=== PATIENT | female | born 1960 | race Caucasian/White ===

== ENCOUNTER 2016-04-20 19:19 | Emergency (ER) | payer OTHER ==
[~2016-04-20] VITALS: Ht 154.9 cm; Wt 81.6 kg
[~2016-04-20 19:19] MED LIST: ACYC400T PO; ALPR0.25 PO; ALPR1TAB2 PO; AMOX500C PO; ASPI-252 PO; AZIT250T6 PO; CIPR7.5D AD; DIVA500T2 PO; DIVA500T9 PO; HYDR-971 PO; OMEP20CA9 PO; TRAM-29 PO; XANAX
--- NOTE | 2016-04-20 20:23 | PHYS DOC ---
Past Medical History Past Medical History: Diverticulosis, P.U.D., Seizure, Other Additional Past Medical Histor: PANIC ATTACKS Past Surgical History: No Surgical History Alcohol Use: None Drug Use: Benzodiazepine, Methamphetamine Adult General Chief Complaint Chief Complaint: BACK PAIN OR INJURY HPI HPI Patient is a 56 year old female who presents with multiple complaints, however the patient's primary complaint is left-sided back pain. The patient has history of chronic back pain. Patient states her symptoms have been getting worse over the past couple days. Patient also states that her urine has been "yellow" which she is concerned about. Patient denies any dysuria or fever. Patient rates her pain currently as 9 out of 10 in her back. Patient states that the pain goes towards her left hip. Patient admits that she has history of chronic low back and left hip pain and has been on medications for treatment. The patient follows a Dr. Moser of neurology and Dr. Casas for primary care. Patient states that she took hydrocodone which has not helped with her pain. Patient denies any loss of bowel or bladder control, foot drop, or saddle anesthesia. Review of Systems Review of Systems Constitutional: Denies fever or chills [] Eyes: Denies change in visual acuity, redness, or eye pain [] HENT: Denies nasal congestion or sore throat [] Respiratory: Denies cough or shortness of breath [] Cardiovascular: Denies chest pain or edema [] GI: Denies abdominal pain, nausea, vomiting, bloody stools or diarrhea [] : Denies dysuria or hematuria [] Musculoskeletal: Back pain, left hip pain [] Integument: Skin rash [] Neurologic: Denies headache, focal weakness or sensory changes [] Current Medications Current Medications Current Medications Medications (Trade) Dose Ordered Sig/[facility] Start Time Stop Time Status Last Admin Dose Admin Orphenadrine Citrate (Norflex) 60 mg 1X ONCE 04/20/16 20:30 04/20/16 20:31 DC 04/20/16 21:05 60 MG Allergies Allergies Allergies Coded Allergies Type Severity Reaction Last Updated Verified codeine Allergy Severe "swells up" 12/17/15 Yes Physical Exam Physical Exam Constitutional: Alert, afebrile, anxious, no acute distress. [] HENT: Normocephalic, atraumatic, bilateral external ears normal, oropharynx moist, no oral exudates, nose normal. [] Eyes: PERRLA, EOMI, conjunctiva normal, no discharge. [] Neck: Normal range of motion, no tenderness, supple, no stridor. [] Cardiovascular:Heart rate regular rhythm, no murmur [] Lungs & Thorax: Bilateral breath sounds clear to auscultation [] Abdomen: Bowel sounds normal, soft, no tenderness, no masses, no pulsatile masses. [] Skin: Warm, dry, no erythema, eczematous rash on forehead and bilateral dorsum of hands. [] Back: Left lower lumbar paraspinous muscle tenderness to palpation, no midline tenderness, no flank ecchymosis. [] Extremities: No tenderness, no cyanosis, no clubbing, ROM intact, no edema. [] Neurologic: Alert and oriented X 3, normal motor function, normal sensory function, no focal deficits noted. [] Current Patient Data Vital Signs Vital Signs Date Time Temp Pulse Resp B/P Pulse Ox O2 Delivery O2 Flow Rate FiO2 04/20/16 22:15 64 19 173/106 94 Room Air 04/20/16 19:20 97.4 97.4 Lab Values Laboratory Tests Test 04/20/16 20:00 Urine Collection Type Unknown Urine Color Yellow Urine Clarity Clear Urine pH 6.0 Urine Specific [place] <=1.005 Urine Protein Negativemg/dL (NEG-TRACE) Urine Glucose (UA) Negativemg/dL (NEG) Urine Ketones (Stick) Negativemg/dL (NEG) Urine Blood Negative (NEG) Urine Nitrite Negative (NEG) Urine Bilirubin Negative (NEG) Urine Urobilinogen Dipstick 0.2mg/dL (0.2 mg/dL) Urine Leukocyte Esterase Trace (NEG) Urine RBC 1-2/HPF (0-2) Urine WBC 0/HPF (0-4) Urine Squamous Epithelial Cells Mod/LPF Urine Bacteria Few/HPF (0-FEW) EKG EKG Not performed [] Radiology/Procedures Radiology/Procedures Not performed [] Course & Med Decision Making Course & Med Decision Making Pertinent Labs and Imaging studies reviewed. (See chart for details) Patient was treated with Norflex in the emergency department with improvement in her back pain and left lower extremity symptoms. The patient's urine sample did not show any evidence of urinary tract infection. The patient was recommended to use Benadryl as needed for her rash and to increase her fluid intake. In talking with the patient, she appears to have an element of anxiety associated with her complaints. The patient has alprazolam which she uses for anxiety. I recommended that she use her medication as prescribed and recommended follow-up with her primary doctor in the next 3 days. Advised return emergency department for any worsening symptoms. Patient voiced understanding and in agreement with treatment plan. Dragon Disclaimer Dragon Disclaimer This electronic medical record was generated, in whole or in part, using a voice recognition dictation system. Departure Departure Impression: Primary Impression: Sciatica Disposition: 01 HOME, SELF-CARE Condition: IMPROVED Referrals: ROMAIN ARZOLA MD (PCP) Patient Instructions: Sciatica Additional Instructions: Follow-up with your primary doctor in 3-5 days. Return to the emergency department for any worsening symptoms. Problem Qualifiers Primary Impression: Sciatica Laterality: left Qualified Code: M54.32 - Sciatica, left side VENKAT HOUSER MD Apr 20, 2016 20:23
[2016-04-20] MEDS ORDERED: ORPHENADRINE CITRATE 60 MG/2 ML VIAL. IM ONE (20:30)
[2016-04-20 21:15] LABS: BILIRUBIN,URINE NEGATIVE (NEG); GLUCOSE,URINE NEGATIVE (NEG); NITRITE,URINE NEGATIVE (NEG); PROTEIN,URINE NEGATIVE (NEG-TRACE); UROBILINOGEN,URINE 0.2 mg/dL (0.2 mg/dL)
[2016-04-20 21:30] LABS: BACTERIA,URINE FEW /HPF (0-FEW); WBC,URINE 0 /HPF (0-4)
[2016-04-20 21:31] LABS: SQUAMOUS EPITHELIAL CELL,UR MOD /LPF
[2016-04-20 22:15] VITALS: BP 173/106
== END 2016-04-20 22:55 | disposition home or self-care (01) ==
LOC: ER 19:19
DX: M54.42 Lumbago with sciatica, left side (principal); G89.29 Other chronic pain; F41.0 Panic disorder [episodic paroxysmal anxiety]; F15.10 Other stimulant abuse, uncomplicated; F13.10 Sedative, hypnotic or anxiolytic abuse, uncomplicated; Z88.5 Allergy status to narcotic agent; Z79.899 Other long term (current) drug therapy
CPT/HCPCS: 81001; 87086; 96372; 99284; J2360

== ENCOUNTER 2016-05-11 11:13 | Emergency (ER) | payer OTHER ==
[~2016-05-11] VITALS: Ht 167.6 cm; Wt 83.0 kg
[2016-05-11] MEDS ORDERED: IV NORMAL SALINE 1000ML BAG 1,000 ML IV SCH (12:19)
--- NOTE | 2016-05-11 12:19 | PHYS DOC ---
Past Medical History Past Medical History: Anxiety, COPD, Diverticulosis, P.U.D., Seizure, Other Additional Past Medical Histor: PANIC ATTACKS Past Surgical History: Tubal ligation Additional Information: 0.5 PPD Alcohol Use: None Drug Use: Benzodiazepine, Methamphetamine Adult General Chief Complaint Chief Complaint: NAUSEA/VOMITING/DIARRHA HPI HPI Patient is a 56 year old female who presents with one week of nausea, productive cough, wheezing. Patient says she has been "spitting up" occasionally due to the nausea. She also reports intermittently feeling hungry and the not hungry. She denies any pain. She felt a little shortness of breath last night, but not now. No fever. She has not taken anything at home for symptoms. No other acute complaints. Review of Systems Review of Systems Constitutional: Denies fever or chills Eyes: Denies change in visual acuity or eye pain HENT: Denies nasal congestion or sore throat Respiratory: Cough. Shortness of breath last night (resolved) Cardiovascular: Denies chest pain GI: Nausea, vomiting. Denies abdominal pain,bloody stools or diarrhea : Denies dysuria or hematuria Musculoskeletal: Denies back pain or joint pain Integument: Denies rash or skin lesions Neurologic: Denies headache, focal weakness or sensory changes Current Medications Current Medications Current Medications Medications (Trade) Dose Ordered Sig/[facility] Start Time Stop Time Status Last Admin Dose Admin Albuterol/ Ipratropium (Duoneb) 3 ml 1X ONCE 05/11/16 12:30 05/11/16 12:31 DC 05/11/16 13:19 3 ML Famotidine (Pepcid) 20 mg 1X ONCE 05/11/16 12:30 05/11/16 12:31 DC 05/11/16 13:02 20 MG Ondansetron HCl (Zofran) 4 mg 1X ONCE 05/11/16 12:30 05/11/16 12:31 DC 05/11/16 13:02 4 MG Prednisone (Prednisone) 60 mg 1X ONCE 05/11/16 12:30 05/11/16 12:31 DC 05/11/16 13:02 60 MG Sodium Polystyrene Sulfonate (Kayexalate) 15 gm 1X ONCE 05/11/16 14:45 05/11/16 14:46 DC 05/11/16 14:53 15 GM Sodium Chloride (Iv Sodium Chloride 0.9% 1000ml Bag) 1,000 ml @ 1,000 mls/hr Q1H 05/11/16 12:19 05/11/16 13:18 DC 05/11/16 13:01 1,000 MLS/HR Allergies Allergies Allergies Coded Allergies Type Severity Reaction Last Updated Verified codeine Allergy Severe "swells up" 12/17/15 Yes Physical Exam Physical Exam Constitutional: Well developed, well nourished, no acute distress, non-toxic appearance HENT: Normocephalic, atraumatic, bilateral external ears normal Eyes: EOMI, conjunctiva normal, no discharge Neck: Normal range of motion, no stridor Cardiovascular: Heart rate normal, regular rhythm, no murmur Lungs & Thorax: Diffuse expiratory wheezing, coarse breath sounds, occasional cough Abdomen: Bowel sounds normal, soft, non-distended, no TTP Skin: Warm, dry, no erythema, no rash Extremities: No obvious deformity, no edema Neurologic: Alert and oriented X 3, no gross deficits noted Psychologic: Affect normal, judgement normal, mood normal Current Patient Data Vital Signs Vital Signs Date Time Temp Pulse Resp B/P Pulse Ox O2 Delivery O2 Flow Rate FiO2 05/11/16 15:00 65 20 121/81 94 05/11/16 13:48 Room Air 05/11/16 11:24 98.1 98.1 Lab Values Laboratory Tests Test 05/11/16 11:00 05/11/16 12:53 Urine Collection Type Unknown Urine Color Yellow Urine Clarity Clear Urine pH 5.5 Urine Specific [place] 1.020 Urine Protein Negativemg/dL (NEG-TRACE) Urine Glucose (UA) Negativemg/dL (NEG) Urine Ketones (Stick) Negativemg/dL (NEG) Urine Blood Negative (NEG) Urine Nitrite Negative (NEG) Urine Bilirubin Negative (NEG) Urine Urobilinogen Dipstick 0.2mg/dL (0.2 mg/dL) Urine Leukocyte Esterase Negative (NEG) Urine RBC Rare/HPF (0-2) Urine WBC 1-4/HPF (0-4) Urine Squamous Epithelial Cells Mod/LPF Urine Bacteria Few/HPF (0-FEW) Urine Mucus Marked/LPF White Blood Count 9.4x10^3/uL (4.0-11.0) Red Blood Count 4.73x10^6/uL (3.50-5.40) Hemoglobin 14.0g/dL (12.0-15.5) Hematocrit 42.0% (36.0-47.0) Mean Corpuscular Volume 89fL (79-100) Mean Corpuscular Hemoglobin 30pg (25-35) Mean Corpuscular Hemoglobin Concent 33g/dL (31-37) Red Cell Distribution Width 14.6% (11.5-14.5) H Platelet Count 210x10^3/uL (140-400) Neutrophils (%) (Auto) 61% (31-73) Lymphocytes (%) (Auto) 31% (24-48) Monocytes (%) (Auto) 6% (0-9) Eosinophils (%) (Auto) 2% (0-3) Basophils (%) (Auto) 0% (0-3) Neutrophils # (Auto) 5.8x10^3uL (1.8-7.7) Lymphocytes # (Auto) 2.9x10^3/uL (1.0-4.8) Monocytes # (Auto) 0.6x10^3/uL (0.0-1.1) Eosinophils # (Auto) 0.2x10^3/uL (0.0-0.7) Basophils # (Auto) 0.0x10^3/uL (0.0-0.2) Sodium Level 144mmol/L (136-145) Potassium Level 5.2mmol/L (3.5-5.1) H Chloride Level 108mmol/L (98-107) H Carbon Dioxide Level 31mmol/L (21-32) Anion Gap 5 (6-14) L Blood Urea Nitrogen 15mg/dL (7-20) Creatinine 0.8mg/dL (0.6-1.0) Estimated GFR (Cockcroft-Gault) 74.2 BUN/Creatinine Ratio 19 (6-20) Glucose Level 100mg/dL (70-99) H Calcium Level 9.7mg/dL (8.5-10.1) Total Bilirubin 0.2mg/dL (0.2-1.0) Aspartate Amino Transferase (AST) 10U/L (15-37) L Alanine Aminotransferase (ALT) 14U/L (14-59) Alkaline Phosphatase 79U/L (46-116) Total Protein 7.5g/dL (6.4-8.2) Albumin 3.5g/dL (3.4-5.0) Albumin/Globulin Ratio 0.9 (1.0-1.7) L Lipase 142U/L (73-393) Laboratory Tests 05/11/16 12:53 Laboratory Tests 05/11/16 12:53 EKG EKG EKG (my read): sinus rhythm, rate 59, normal axis, no acute ischemic changes, no peaked T waves Radiology/Procedures Radiology/Procedures CXR: IMPRESSION: No acute cardiopulmonary abnormality is detected. Course & Med Decision Making Course & Med Decision Making Pertinent Labs and Imaging studies reviewed. (See chart for details) Patient is 56-year-old female who presents with nausea and vomiting, cough. Likely viral illness with exacerbation of COPD. Will obtain EKG and chest x-ray , as well as labs. Steroids and breathing treatment ordered as well as nausea medication. EKG and chest x-ray results as above. Labs notable for mild hyperkalemia. EKG without changes related to this. Discussed results with patient, who is feeling much better at this time. We will go ahead and send her home. I gave her a dose of Kayexalate before she left, given instructions for close follow-up with PCP for further evaluation of this. Discharged with prescription for steroid burst, MDI refill, strict return precautions. Dragon Disclaimer Dragon Disclaimer This electronic medical record was generated, in whole or in part, using a voice recognition dictation system. Departure Departure Impression: Primary Impression: COPD exacerbation Additional Impressions: Nausea & vomiting Hyperkalemia Disposition: HOME, SELF-CARE Condition: IMPROVED Referrals: RAMYA LINARES MD (PCP) Patient Instructions: Chronic Obstructive Pulmonary Disease Exacerbation, Nausea and Vomiting Additional Instructions: Thank you for allowing us to provide care today in the Emergency Department. Take the provided medication as directed. Your potassium level was slightly high. You will need to follow up to ensure this has improved. Schedule a follow up appointment with your primary care doctor. Return promptly to the Emergency Department if you develop any new or concerning symptoms, such as shortness of breath. Scripts Prednisone 50 Mg Tablet1 Tab PO DAILY #4 TAB start taking 05/12/16 Prov:TOMAS AVITIA MD 05/11/16 Albuterol Sulfate (Proventil Hfa Inhaler)6.7 Gm Hfa.[id number].ad1 Puff IH PRN Q4HRS PRN WHEEZING #1 INHALER Ref 0 Prov:TOMAS AVITIA MD 05/11/16 Ondansetron (Zofran Odt)4 Mg Tab.rapdis1 Tab SL Q8HRS PRN NAUSEA #15 TAB Prov:TOMAS AVITIA MD 05/11/16 Problem Qualifiers TOMAS AVITIA MD May 11, 2016 12:19
[2016-05-11] MEDS ORDERED: IPRATRPIUM/ALBUTEROL 0.5/2.5MG 3 ML NEBU. NEB ONE (12:30)
[2016-05-11] MEDS ORDERED: PREDNISONE 20 MG TABLET PO ONE (12:30)
[2016-05-11] MEDS ORDERED: ONDANSETRON PF 4 MG/2 ML VIAL. IV ONE (12:30)
[2016-05-11] MEDS ORDERED: FAMOTIDINE 20 MG/2 ML VIAL IVP ONE (12:30)
--- NOTE | 2016-05-11 13:02 | RAD ---
Chest, 2 views, 05/11/2016: History: Productive cough Comparison is made to a study from 01/24/2016. The heart size and pulmonary vascularity are normal. No pulmonary infiltrates are seen. There is no evidence of pleural fluid. Degenerative changes are present at the left shoulder with a probable periarticular loose body. Moderate spurring is present in the spine. IMPRESSION: No acute cardiopulmonary abnormality is detected.
[2016-05-11 13:04] LABS: BASO % 0 % (0-3); EOS % 2 % (0-3); LYMPH # 2.9 x10^3/uL (1.0-4.8); LYMPH % 31 % (24-48); MEAN CORPUSCULAR HEMOGLOBIN 30 pg (25-35); MEAN CORPUSCULAR HGB CONC 33 g/dL (31-37); MEAN CORPUSCULAR VOLUME 89 fL (79-100); MONO % 6 % (0-9); NEUT % 61 % (31-73); PLATELET COUNT 210 x10^3/uL (140-400); RED BLOOD COUNT 4.73 x10^6/uL (3.50-5.40); RED CELL DISTRIBUTION WIDTH 14.6 % (11.5-14.5); WHITE BLOOD COUNT 9.4 x10^3/uL (4.0-11.0)
[2016-05-11 13:10] LABS: BILIRUBIN,URINE NEGATIVE (NEG); GLUCOSE,URINE NEGATIVE (NEG); NITRITE,URINE NEGATIVE (NEG); PH,URINE 5.5; PROTEIN,URINE NEGATIVE (NEG-TRACE); UROBILINOGEN,URINE 0.2 mg/dL (0.2 mg/dL)
[2016-05-11 13:17] LABS: CALCIUM 9.7 mg/dL (8.5-10.1); CREATININE 0.8 mg/dL (0.6-1.0); GFR 74.2; POTASSIUM 5.2 mmol/L (3.5-5.1)
[2016-05-11 13:22] LABS: BACTERIA,URINE FEW /HPF (0-FEW); RBC,URINE RARE /HPF (0-2); SQUAMOUS EPITHELIAL CELL,UR MOD /LPF
[2016-05-11 13:23] LABS: ALBUMIN 3.5 g/dL (3.4-5.0); ALBUMIN/GLOBULIN RATIO 0.9 (1.0-1.7); TOTAL BILIRUBIN 0.2 mg/dL (0.2-1.0); TOTAL PROTEIN 7.5 g/dL (6.4-8.2)
[2016-05-11] MEDS ORDERED: ONDA4TAB10 SL (14:44)
[2016-05-11] MEDS ORDERED: PRED50TA PO (14:44)
[2016-05-11] MEDS ORDERED: PROVENTIL HFA6.7 GM IH (14:44)
[2016-05-11] MEDS ORDERED: SODIUM POLYSTYRENE SULFONATE 15 GM/60 ML ORAL.SUSP. PO ONE (14:45)
[2016-05-11 15:00] VITALS: BP 121/81
--- NOTE | 2016-05-11 15:23 | EKG ---
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
== END 2016-05-11 15:01 | disposition home or self-care (01) ==
LOC: ER 11:13
DX: J44.1 Chronic obstructive pulmonary disease with (acute) exacerbation (principal); R11.2 Nausea with vomiting, unspecified; E87.5 Hyperkalemia; F41.9 Anxiety disorder, unspecified; F17.200 Nicotine dependence, unspecified, uncomplicated; F19.10 Other psychoactive substance abuse, uncomplicated; F15.10 Other stimulant abuse, uncomplicated; Z98.51 Tubal ligation status; Z87.11 Personal history of peptic ulcer disease; Z88.5 Allergy status to narcotic agent
CPT/HCPCS: 36415; 71020; 80053; 81001; 83690; 85027; 93005; 94640; 96361; 96374; 96375; 99285; J2405; J7030; J7512; J7620; S0028

== ENCOUNTER 2016-06-27 19:41 | Emergency (ER) | payer OTHER ==
[~2016-06-27] VITALS: Ht 165.1 cm; Wt 83.0 kg
[~2016-06-27 19:41] MED LIST changes: +ONDA4TAB10 SL; +PRED50TA PO; +PROVENTIL HFA6.7 GM IH
[2016-06-27 20:34] LABS: BASO % 0 % (0-3); EOS % 2 % (0-3); HEMATOCRIT 39.9 % (36.0-47.0); HEMOGLOBIN 13.1 g/dL (12.0-15.5); LYMPH # 2.5 x10^3/uL (1.0-4.8); LYMPH % 37 % (24-48); MEAN CORPUSCULAR HEMOGLOBIN 30 pg (25-35); MEAN CORPUSCULAR HGB CONC 33 g/dL (31-37); MEAN CORPUSCULAR VOLUME 91 fL (79-100); MONO % 7 % (0-9); NEUT % 55 % (31-73); PLATELET COUNT 171 x10^3/uL (140-400); RED BLOOD COUNT 4.37 x10^6/uL (3.50-5.40); RED CELL DISTRIBUTION WIDTH 14.9 % (11.5-14.5); WHITE BLOOD COUNT 6.8 x10^3/uL (4.0-11.0)
[2016-06-27 20:54] LABS: CALCIUM 8.5 mg/dL (8.5-10.1); CREATININE 0.9 mg/dL (0.6-1.0); GFR 64.8; POTASSIUM 3.7 mmol/L (3.5-5.1)
--- NOTE | 2016-06-27 21:17 | PHYS DOC ---
Past Medical History Past Medical History: Anxiety, COPD, Diverticulosis, P.U.D., Seizure, Other Additional Past Medical Histor: PANIC ATTACKS Past Surgical History: Tubal ligation Additional Information: PPD Alcohol Use: None Drug Use: Benzodiazepine, Methamphetamine Adult General Chief Complaint Chief Complaint: ABDOMINAL PAIN HPI HPI Patient is a 56 year old female who presents with intermittent left sided flank and abdominal fullness and spasm type pain for the past 3 days. No pain currently. Pain is worse with ROM. Has taken no medications to attempt to help with this symptom. She denies fever or chills, nausea or vomiting, diarrhea , constipation, dysuria, hematuria, rash, numbness, tingling, weakness, bowel or bladder dysfunction, saddle anesthesia. Review of Systems Review of Systems Constitutional: Denies fever or chills [] Eyes: Denies change in visual acuity, redness, or eye pain [] HENT: Denies nasal congestion or sore throat [] Respiratory: Denies cough or shortness of breath [] Cardiovascular: No additional information not addressed in HPI [] GI: Denies nausea, vomiting, bloody stools or diarrhea [] : Denies dysuria or hematuria [] Musculoskeletal: Denies joint pain [] Integument: Denies rash or skin lesions [] Neurologic: Denies headache, focal weakness or sensory changes [] Endocrine: Denies polyuria or polydipsia [] Allergies Allergies Allergies Coded Allergies Type Severity Reaction Last Updated Verified codeine Allergy Severe "swells up" 12/17/15 Yes Physical Exam Physical Exam Constitutional: Well developed, well nourished, no acute distress, non-toxic appearance. [] HENT: Normocephalic, atraumatic, bilateral external ears normal, oropharynx moist, nose normal. [] Eyes: PERRLA, EOMI. [] Neck: Normal range of motion, supple. [] Cardiovascular:Heart rate regular rhythm [] Lungs & Thorax: Bilateral breath sounds clear to auscultation [] Abdomen: Bowel sounds normal, soft, no tenderness, no pulsatile masses. [] Skin: Warm, dry, no erythema, no rash. [] Back: No midline spinal tenderness, no CVA tenderness. Has mild left lumbar paraspinal tenderness with no visual or palpable abnormality [] Extremities: No tenderness, ROM intact, no edema. [] Neurologic: Alert and oriented X 3, normal motor function, normal sensory function, no focal deficits noted. [] Psychologic: Affect normal, judgement normal, mood normal. [] Current Patient Data Vital Signs Vital Signs Date Time Temp Pulse Resp B/P Pulse Ox O2 Delivery O2 Flow Rate FiO2 06/27/16 19:42 98.1 74 20 145/78 92 Room Air 98.1 Lab Values Laboratory Tests Test 06/27/16 20:00 06/27/16 21:02 White Blood Count 6.8x10^3/uL (4.0-11.0) Red Blood Count 4.37x10^6/uL (3.50-5.40) Hemoglobin 13.1g/dL (12.0-15.5) Hematocrit 39.9% (36.0-47.0) Mean Corpuscular Volume 91fL (79-100) Mean Corpuscular Hemoglobin 30pg (25-35) Mean Corpuscular Hemoglobin Concent 33g/dL (31-37) Red Cell Distribution Width 14.9% (11.5-14.5) H Platelet Count 171x10^3/uL (140-400) Neutrophils (%) (Auto) 55% (31-73) Lymphocytes (%) (Auto) 37% (24-48) Monocytes (%) (Auto) 7% (0-9) Eosinophils (%) (Auto) 2% (0-3) Basophils (%) (Auto) 0% (0-3) Neutrophils # (Auto) 3.7x10^3uL (1.8-7.7) Lymphocytes # (Auto) 2.5x10^3/uL (1.0-4.8) Monocytes # (Auto) 0.5x10^3/uL (0.0-1.1) Eosinophils # (Auto) 0.1x10^3/uL (0.0-0.7) Basophils # (Auto) 0.0x10^3/uL (0.0-0.2) Sodium Level 145mmol/L (136-145) Potassium Level 3.7mmol/L (3.5-5.1) Chloride Level 106mmol/L (98-107) Carbon Dioxide Level 30mmol/L (21-32) Anion Gap 9 (6-14) Blood Urea Nitrogen 12mg/dL (7-20) Creatinine 0.9mg/dL (0.6-1.0) Estimated GFR (Cockcroft-Gault) 64.8 Glucose Level 111mg/dL (70-99) H Calcium Level 8.5mg/dL (8.5-10.1) Urine Collection Type Unknown Urine Color Yellow Urine Clarity Clear Urine pH 6.0 Urine Specific [place] 1.010 Urine Protein Negativemg/dL (NEG-TRACE) Urine Glucose (UA) Negativemg/dL (NEG) Urine Ketones (Stick) Negativemg/dL (NEG) Urine Blood Negative (NEG) Urine Nitrite Negative (NEG) Urine Bilirubin Negative (NEG) Urine Urobilinogen Dipstick 0.2mg/dL (0.2 mg/dL) Urine Leukocyte Esterase Negative (NEG) Urine RBC 0/HPF (0-2) Urine WBC 0/HPF (0-4) Urine Squamous Epithelial Cells Mod/LPF Urine Bacteria 0/HPF (0-FEW) Laboratory Tests 06/27/16 20:00 Laboratory Tests 06/27/16 20:00 Course & Med Decision Making Course & Med Decision Making Pertinent Labs and Imaging studies reviewed. (See chart for details) Workup is unremarkable. Discussed supportive care. Return precautions given. She understands and agrees with plan. Dragon Disclaimer Dragon Disclaimer This electronic medical record was generated, in whole or in part, using a voice recognition dictation system. Departure Departure Impression: Primary Impression: Left low back pain Disposition: 01 HOME, SELF-CARE Condition: STABLE Referrals: ROMAIN ARZOLA MD (PCP) Patient Instructions: Back Pain, Adult, [id number] Additional Instructions: Take Tylenol or ibuprofen as needed for pain. Follow-up with your primary care doctor within one week. Return for any concerns. Problem Qualifiers Primary Impression: Left low back pain Chronicity: acute Sciatica presence: without sciatica Qualified Code: M54.5 - Low back pain Ji HALL MD Jun 27, 2016 21:17
[2016-06-27 21:21] LABS: BILIRUBIN,URINE NEGATIVE (NEG); GLUCOSE,URINE NEGATIVE (NEG); NITRITE,URINE NEGATIVE (NEG); PROTEIN,URINE NEGATIVE (NEG-TRACE); UROBILINOGEN,URINE 0.2 mg/dL (0.2 mg/dL)
[2016-06-27 21:37] LABS: BACTERIA,URINE 0 /HPF (0-FEW); RBC,URINE 0 /HPF (0-2); SQUAMOUS EPITHELIAL CELL,UR MOD /LPF; WBC,URINE 0 /HPF (0-4)
[2016-06-27 22:00] VITALS: BP 139/68
== END 2016-06-27 22:05 | disposition home or self-care (01) ==
LOC: ER 19:41
DX: M54.5 Low back pain (principal); R10.9 Unspecified abdominal pain; J44.9 Chronic obstructive pulmonary disease, unspecified; F15.10 Other stimulant abuse, uncomplicated; F19.10 Other psychoactive substance abuse, uncomplicated; F17.200 Nicotine dependence, unspecified, uncomplicated; Z98.51 Tubal ligation status
CPT/HCPCS: 36415; 80048; 81001; 85027; 99284

== ENCOUNTER 2016-10-08 03:17 | Emergency (ER) | payer OTHER ==
[~2016-10-08] VITALS: Ht 165.1 cm; Wt 83.0 kg
[~2016-10-08 03:17] MED LIST changes: -TRAM-29 PO; +TRAM-48 PO
[2016-10-08] MEDS ORDERED: IV NORMAL SALINE 1000ML BAG 1,000 ML IV SCH (03:20)
--- NOTE | 2016-10-08 03:23 | PHYS DOC ---
Past Medical History Past Medical History: Anxiety, COPD, Diverticulosis, P.U.D., Seizure, Other Additional Past Medical Histor: PANIC ATTACKS Past Surgical History: Tubal ligation Alcohol Use: Occasionally Drug Use: Benzodiazepine, Methamphetamine Social History Narrative: Lives alone in an apartment Adult General Chief Complaint Chief Complaint: ABDOMINAL PAIN HPI HPI Patient is a 56 year old female who presents with abdominal pain. She states it started earlier tonight. The pain is mid abdomen and radiates to her lower abdomen. She has n/v and then watery diarrhea "It was just going right thru me. " She admitted to ethanol use tonight. No fever. No travel. No blood in emesis or stool. No fever. Review of Systems Review of Systems Constitutional: Denies fever or chills Eyes: Denies change in visual acuity, redness, or eye pain HENT: Denies nasal congestion or sore throat Respiratory: Denies cough or shortness of breath Cardiovascular: No chest pain. GI:abdominal pain, nausea, vomiting as per HPI, No bloody stools or diarrhea : Denies dysuria or hematuria Musculoskeletal: Denies back pain or joint pain Integument: Denies rash or skin lesions Neurologic: Denies headache, focal weakness or sensory changes Current Medications Current Medications Current Medications Medications (Trade) Dose Ordered Sig/Kamila Start Time Stop Time Status Last Admin Dose Admin Famotidine (Pepcid) 20 mg 1X ONCE 10/08/16 05:00 10/08/16 05:01 Info (Do NOT chart on this entry -- for MONITORING) 1 each PRN DAILY PRN 10/08/16 04:00 10/10/16 03:59 Iohexol (Omnipaque 300 Mg/ml) 75 ml 1X ONCE 10/08/16 04:15 10/08/16 04:16 DC 10/08/16 04:20 75 ML Morphine Sulfate 2 mg PRN Q15MIN PRN 10/08/16 03:30 10/09/16 03:29 10/08/16 03:29 2 MG Ondansetron HCl (Zofran) 4 mg 1X ONCE 10/08/16 03:30 10/08/16 03:32 DC 10/08/16 03:28 4 MG Sodium Chloride 1,000 ml @ 1,000 mls/hr Q1H 10/08/16 03:20 10/08/16 04:19 DC 10/08/16 03:27 1,000 MLS/HR Allergies Allergies Allergies Coded Allergies Type Severity Reaction Last Updated Verified codeine Allergy Severe "swells up" 12/17/15 Yes Physical Exam Physical Exam Constitutional: Well developed, well nourished, no acute distress, non-toxic appearance. HENT: Normocephalic, atraumatic, bilateral external ears normal, oropharynx moist, no oral exudates, nose normal. Eyes: PERRLA, EOMI, conjunctiva normal, no discharge. Neck: Normal range of motion, no tenderness, supple, no stridor. Cardiovascular:Heart rate regular rhythm, no murmur Lungs & Thorax: Bilateral breath sounds clear to auscultation Abdomen: Bowel sounds normal, soft, tenderness to mid abdomen; no rebound or guarding. no masses, no pulsatile masses. Skin: Warm, dry, no erythema, no rash. Back: No tenderness, no CVA tenderness. Extremities: No tenderness, no cyanosis, no clubbing, ROM intact, no edema. Neurologic: Alert and oriented X 3, normal motor function, normal sensory function, no focal deficits noted. Psychologic: Affect normal, judgement normal, mood normal. Current Patient Data Vital Signs Vital Signs Date Time Temp Pulse Resp B/P (MAP) Pulse Ox O2 Delivery O2 Flow Rate FiO2 10/08/16 03:29 17 95 Room Air 10/08/16 03:19 97.9 78 149/90 (109) 97.9 Lab Values Laboratory Tests Test 10/08/16 03:22 10/08/16 03:42 White Blood Count 8.9 x10^3/uL (4.0-11.0) Red Blood Count 4.60 x10^6/uL (3.50-5.40) Hemoglobin 13.9 g/dL (12.0-15.5) Hematocrit 41.7 % (36.0-47.0) Mean Corpuscular Volume 91 fL (79-100) Mean Corpuscular Hemoglobin 30 pg (25-35) Mean Corpuscular Hemoglobin Concent 33 g/dL (31-37) Red Cell Distribution Width 14.4 % (11.5-14.5) Platelet Count 198 x10^3/uL (140-400) Neutrophils (%) (Auto) 60 % (31-73) Lymphocytes (%) (Auto) 31 % (24-48) Monocytes (%) (Auto) 7 % (0-9) Eosinophils (%) (Auto) 1 % (0-3) Basophils (%) (Auto) 1 % (0-3) Neutrophils # (Auto) 5.3 x10^3uL (1.8-7.7) Lymphocytes # (Auto) 2.7 x10^3/uL (1.0-4.8) Monocytes # (Auto) 0.7 x10^3/uL (0.0-1.1) Eosinophils # (Auto) 0.1 x10^3/uL (0.0-0.7) Basophils # (Auto) 0.1 x10^3/uL (0.0-0.2) Sodium Level 142 mmol/L (136-145) Potassium Level 3.3 mmol/L (3.5-5.1) L Chloride Level 102 mmol/L (98-107) Carbon Dioxide Level 31 mmol/L (21-32) Anion Gap 9 (6-14) Blood Urea Nitrogen 9 mg/dL (7-20) Creatinine 0.8 mg/dL (0.6-1.0) Estimated GFR (Cockcroft-Gault) 74.2 BUN/Creatinine Ratio 11 (6-20) Glucose Level 111 mg/dL (70-99) H Calcium Level 9.1 mg/dL (8.5-10.1) Total Bilirubin 0.3 mg/dL (0.2-1.0) Direct Bilirubin 0.1 mg/dL (0.0-0.2) Aspartate Amino Transferase (AST) 15 U/L (15-37) Alanine Aminotransferase (ALT) 16 U/L (14-59) Alkaline Phosphatase 90 U/L (46-116) Creatine Kinase 183 U/L (26-192) Creatine Kinase MB (Mass) 4.8 ng/mL (0.0-3.6) H Creatine Kinase MB Relative Index 2.6 % (0-4) Troponin I Quantitative < 0.017 ng/mL (0.000-0.055) Total Protein 7.8 g/dL (6.4-8.2) Albumin 3.9 g/dL (3.4-5.0) Albumin/Globulin Ratio 1.0 (1.0-1.7) Lipase 112 U/L (73-393) Urine Collection Type Unknown Urine Color Yellow Urine Clarity Clear Urine pH 6.0 Urine Specific [place] <=1.005 Urine Protein Negative mg/dL (NEG-TRACE) Urine Glucose (UA) Negative mg/dL (NEG) Urine Ketones (Stick) Negative mg/dL (NEG) Urine Blood Negative (NEG) Urine Nitrite Negative (NEG) Urine Bilirubin Negative (NEG) Urine Urobilinogen Dipstick 0.2 mg/dL (0.2 mg/dL) Urine Leukocyte Esterase Negative (NEG) Urine RBC 0 /HPF (0-2) Urine WBC 0 /HPF (0-4) Urine Squamous Epithelial Cells Few /LPF Urine Bacteria 0 /HPF (0-FEW) Laboratory Tests 10/08/16 03:22 Laboratory Tests 10/08/16 03:22 EKG EKG G interpreted by myself at 0328 AM. Normal sinus rhythm, rate 74. No acute ST elevation. Non specific ST changes. Normal axis. Radiology/Procedures Radiology/Procedures [facility] [address] [place], [place] [id number] IMAGING REPORT Signed PATIENT: HZAEL LARKIN ACCOUNT: [id number] : 1960 LOCATION: ER AGE: 56 SEX: F EXAM STATUS: REG ER ORD. PHYSICIAN: TED BLACKWOOD MD REASON: epigastric -mid abdomen pain; ethanol use PROCEDURE: CT ABD PELV W/ IV CONTRST ONLY INDICATION: epigastric mid abd pain; Omni 300, 75ml COMPARISON: None. TECHNIQUE: Axial CT images were obtained through the abdomen and pelvis with intravenous contrast. One or more of the following individualized dose reduction techniques were utilized for this examination: 1. Automated exposure control; 2. Adjustment of the mA and/or kV according to patient size; 3. Use of iterative reconstruction technique. FINDINGS: Abdomen: Chest Base: Mild prominence distal esophageal wall. Vessels: Scattered calcific atherosclerosis. Liver/Biliary: No intrahepatic biliary duct dilation. Pancreas: No peripancreatic edema. Spleen: Calcified granulomas. Kidneys/Adrenal: No hydronephrosis. GI: Colonic diverticulosis. The appendix does not appear grossly inflamed. No dilated loops of bowel to suggest obstruction. Degenerative changes the spine with multilevel central canal and neural foraminal narrowing. Pelvis: Bladder: No definite adjacent inflammation. IMPRESSION: 1. No evidence of appendicitis or hydronephrosis. 2. Mild prominence of distal esophageal wall. Could be from a region of contraction but would correlate with symptoms in the region to ensure that there is not a pathologic process such as esophagitis Electronically signed by: Kory Tran MD (10/08/2016 4:28 AM) [facility] DICTATED and SIGNED BY: KORY TRAN MD DATE: 10/08/16417 CC: TED BLACKWOOD MD; ROMAIN ARZOLA MD ~ Course & Med Decision Making Course & Med Decision Making Pertinent Labs and Imaging studies reviewed. (See chart for details) Evaluated patient upon arrival. IV NS, IV morphine and IV Zofran. At [address] ordered. aT [address]; awaiting results. At [address] results back with esophagitis. Pepcid IV started and po Rx. My differential for abdominal pain includes but is not limited to appendicitis; cholelithiasis or cholecystitis; renal stones; ureterolithiasis; pancreatitis; urinary tract infection; bowel obstruction; irritable bowel. I have spoken with the patient and/or caregivers. I have explained the patient' s condition, diagnosis and treatment plan based on the information available to me at this time. I have answered the patient's and/or caregiver's questions and addressed any concerns. The patient and/or caregivers have as good an understanding of the patient's diagnosis, condition and treatment plan as can be expected at this point. The patient's condition is stable and appropriate for discharge from the emergency department. The patient will pursue further outpatient evaluation with the primary care physician or other designated or consulting physician as outlined in the discharge instructions. The patient and/or caregivers are agreeable to this plan of care and follow-up instructions have been explained in detail. The patient and/or caregivers have received these instructions in written format and have expressed an understanding of the discharge instructions. The patient and/or caregivers are aware that any significant change in condition or worsening of symptoms should prompt an immediate return to this or the closest emergency department or a call to 911. [place] Disclaimer Dragon Disclaimer This electronic medical record was generated, in whole or in part, using a voice recognition dictation system. Departure Departure Impression: Primary Impression: Abdominal pain Additional Impression: Gastritis Disposition: HOME, SELF-CARE Condition: GOOD Referrals: ROMAIN ARZOLA MD (PCP) Patient Instructions: Diet for Gastroesophageal Reflux Disease, Adult Scripts Famotidine (PEPCID) 40 Mg Tablet 40 MG PO HS for 14 Days, #14 TAB Prov: TED BLACKWOOD MD 10/08/16 Problem Qualifiers TED BLACKWOOD MD Oct 08, 2016 03:23
[2016-10-08] MEDS ORDERED: ONDANSETRON PF 4 MG/2 ML VIAL. IV ONE (03:30)
[2016-10-08] MEDS ORDERED: MORPHINE SULFATE 2 MG/ML DISP.SYRIN. IV/SQ PRN (03:30)
[2016-10-08 03:32] LABS: BASO # 0.1 x10^3/uL (0.0-0.2); BASO % 1 % (0-3); EOS % 1 % (0-3); HEMATOCRIT 41.7 % (36.0-47.0); HEMOGLOBIN 13.9 g/dL (12.0-15.5); LYMPH # 2.7 x10^3/uL (1.0-4.8); LYMPH % 31 % (24-48); MEAN CORPUSCULAR HEMOGLOBIN 30 pg (25-35); MEAN CORPUSCULAR HGB CONC 33 g/dL (31-37); MEAN CORPUSCULAR VOLUME 91 fL (79-100); MONO % 7 % (0-9); NEUT % 60 % (31-73); PLATELET COUNT 198 x10^3/uL (140-400); RED CELL DISTRIBUTION WIDTH 14.4 % (11.5-14.5); WHITE BLOOD COUNT 8.9 x10^3/uL (4.0-11.0)
[2016-10-08 03:41] LABS: CALCIUM 9.1 mg/dL (8.5-10.1); CREATININE 0.8 mg/dL (0.6-1.0); GFR 74.2; POTASSIUM 3.3 mmol/L (3.5-5.1)
[2016-10-08 03:46] LABS: ALBUMIN 3.9 g/dL (3.4-5.0); DIRECT BILIRUBIN 0.1 mg/dL (0.0-0.2); TOTAL BILIRUBIN 0.3 mg/dL (0.2-1.0); TOTAL PROTEIN 7.8 g/dL (6.4-8.2)
[2016-10-08 03:51] LABS: BILIRUBIN,URINE NEGATIVE (NEG); GLUCOSE,URINE NEGATIVE (NEG); NITRITE,URINE NEGATIVE (NEG); PROTEIN,URINE NEGATIVE (NEG-TRACE); UROBILINOGEN,URINE 0.2 mg/dL (0.2 mg/dL)
[2016-10-08 03:51] LABS: CKMB MASS 4.8 ng/mL (0.0-3.6)
[2016-10-08 03:59] LABS: BACTERIA,URINE 0 /HPF (0-FEW); RBC,URINE 0 /HPF (0-2); SQUAMOUS EPITHELIAL CELL,UR FEW /LPF; WBC,URINE 0 /HPF (0-4)
[2016-10-08] MEDS ORDERED: CONTRAST GIVEN MC PRN (04:00)
[2016-10-08] MEDS ORDERED: IOHEXOL 300 MG/ML 75 ML VIAL IV ONE (04:15)
--- NOTE | 2016-10-08 04:32 | RAD ---
INDICATION: epigastric mid abd pain; Omni 300, 75ml COMPARISON: None. TECHNIQUE: Axial CT images were obtained through the abdomen and pelvis with intravenous contrast. One or more of the following individualized dose reduction techniques were utilized for this examination: 1. Automated exposure control; 2. Adjustment of the mA and/or kV according to patient size; 3. Use of iterative reconstruction technique. FINDINGS: Abdomen: Chest Base: Mild prominence distal esophageal wall. Vessels: Scattered calcific atherosclerosis. Liver/Biliary: No intrahepatic biliary duct dilation. Pancreas: No peripancreatic edema. Spleen: Calcified granulomas. Kidneys/Adrenal: No hydronephrosis. GI: Colonic diverticulosis. The appendix does not appear grossly inflamed. No dilated loops of bowel to suggest obstruction. Degenerative changes the spine with multilevel central canal and neural foraminal narrowing. Pelvis: Bladder: No definite adjacent inflammation. IMPRESSION: 1. No evidence of appendicitis or hydronephrosis. 2. Mild prominence of distal esophageal wall. Could be from a region of contraction but would correlate with symptoms in the region to ensure that there is not a pathologic process such as esophagitis Electronically signed by: Cameron Pappas MD (10/08/2016 4:28 AM) [facility]
[2016-10-08] MEDS ORDERED: FAMO40TA57 PO (04:54)
[2016-10-08] MEDS ORDERED: FAMOTIDINE 20 MG TABLET. PO ONE (05:00)
[2016-10-08 05:10] VITALS: BP 163/89
--- NOTE | 2016-10-08 05:46 | EKG ---
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
== END 2016-10-08 05:08 | disposition home or self-care (01) ==
LOC: ER 03:17
DX: K29.70 Gastritis, unspecified, without bleeding (principal); J44.9 Chronic obstructive pulmonary disease, unspecified; F41.0 Panic disorder [episodic paroxysmal anxiety]; F15.10 Other stimulant abuse, uncomplicated; F13.10 Sedative, hypnotic or anxiolytic abuse, uncomplicated; Z88.5 Allergy status to narcotic agent
CPT/HCPCS: 36415; 74177; 80053; 80076; 81001; 82553; 83690; 84484; 85027; 93005; 96361; 96374; 96375; 99285; J2270; J2405; J7030; Q9967

== ENCOUNTER → 2016-11-17 | Outpatient (CLI) | payer OTHER ==
[~2016-11-17] MED LIST changes: +FAMO40TA57 PO; +GADOBUTROL 7.5 MMOL/7.5 ML VIAL IV ONE
--- NOTE | 2016-11-17 14:09 | RAD ---
INDICATION: Seizures. TECHNIQUE: Sagittal T1, axial T1, axial T2, axial FLAIR, axial T2 gradient, and diffusion imaging with ADC map was performed. Oblique coronal FLAIR imaging through the temporal lobes was performed. 7.5 mL of intravenous Gadavist was administered and postcontrast axial and coronal sequences performed. Comparison is a CT head from January 24, 2016 and MRI from May 08, 2014. Current study is degraded by mild motion. FINDINGS: There is prominence of the ventricles and sulci which has a slight parietal predominance. There is no acute intracranial hemorrhage or extra-axial fluid collection. There is no mass effect or midline shift. There is no restricted diffusion to suggest an acute infarct. Sagittal midline structures are unremarkable. Pituitary and suprasellar region are unremarkable. Intracranial flow voids are preserved. There is ethmoid and maxillary mucosal thickening, minimal. Left mastoid air cells are opacified. Oblique coronal imaging through the temporal lobes is degraded by motion, there is no obvious mesial temporal sclerosis or temporal lobe mass. There is no pathologic enhancement. IMPRESSION: 1. No acute intracranial findings. 2. Brain parenchymal volume loss with a parietal predominance. Electronically signed by: Eddie Rendon MD (11/17/2016 2:06 PM) [facility]
--- NOTE | 2016-11-17 15:32 | RAD ---
Indication low back pain. 22 mCi of technetium labeled MDP was administered. Whole body static images were obtained as well as additional images targeted to the spine. There is some increased activity about the shoulders likely degenerative. Slightly increased uptake in the mid thoracic spine is probably degenerative as well as an isolated area of uptake in an upper lumbar vertebral body segment. There is no evidence of metastatic disease. Some increased activity is seen in the area of the paranasal sinuses suggesting sinusitis. IMPRESSION: Areas of increased activity most compatible with degenerative disease. Suspect sinusitis. No evidence of metastatic disease
== END | disposition home or self-care (01) ==
LOC: NM 11:54
PROVIDERS: ATTEND Psychiatry & Neurology Neurology with Special Qualifications in Child Neurology
DX: G40.309 Generalized idiopathic epilepsy and epileptic syndromes, not intractable, without status epilepticus (principal); M48.06 Spinal stenosis, lumbar region
CPT/HCPCS: 70553; 78306; 96374; A9503; A9585

== ENCOUNTER 2016-12-05 13:20 | Emergency (ER) | payer OTHER ==
[~2016-12-05] VITALS: Ht 162.6 cm; Wt 83.0 kg
[~2016-12-05 13:20] MED LIST changes: -GADOBUTROL 7.5 MMOL/7.5 ML VIAL IV ONE
[2016-12-05] MEDS ORDERED: IV NORMAL SALINE 1000ML BAG 1,000 ML IV SCH (14:00)
--- NOTE | 2016-12-05 14:04 | PHYS DOC ---
Past Medical History Past Medical History: Anxiety, COPD, Diverticulosis, P.U.D., Seizure, Other Additional Past Medical Histor: PANIC ATTACKS Past Surgical History: Tubal ligation Alcohol Use: Occasionally Drug Use: Benzodiazepine, Methamphetamine Adult General Chief Complaint Chief Complaint: DIARRHEA HPI HPI Patient is a 56 year old female brought to the ED by her daughter with the complaint of abdominal pain and diarrhea. Patient stated her symptoms began this morning. She has had diarrhea 7 or 8 times. She has seen blood in her stool. She's had lower abdominal pain. Patient states she has had a similar episode, attributes it to "my ulcers". Patient states yesterday she was drinking [employer], she got too drunk, and she was puking. Then this morning is when she developed the diarrhea. The patient denies fever or chills. PCP Dr. Varghese. Patient has a history of epilepsy and takes Depakote. She states she last took Depakote at 4 AM. She takes Xanax, last dose this morning. When she runs out of Xanax is when she has seizures. Patient states it's been a while maybe 5 months since she had a seizure but the patient's daughter said no , she had "[id number] seizures" a month ago. Patient and her daughter are difficult historians. I feel that they are contradicting each other and confabulating. When I asked if the patient had had a colonoscopy, the patient stated she had not, that same time the patient's daughter stated that she had had a colonoscopy and that she has colon cancer. The patient denies this. Patient brings medicine bottles of Divalproex, Xanax, and an empty bottle of hydrocodone 5/325, dated 11/29/16, with the instructions take one at bedtime. I asked the patient if she has run out of this medication and she stated yes she has. When I pointed out that on 11/24, she filled a 30 day supply, the patient's daughter stated that she has some at home and did not bring all of it with her. Review of Systems Review of Systems Constitutional: Denies fever or chills [] Respiratory: Denies cough or shortness of breath [] Cardiovascular: Denies chest pain GI: As in history of present illness : Denies dysuria or hematuria [] Musculoskeletal: Denies back pain or joint pain [] Integument: Denies rash or skin lesions [] Current Medications Current Medications Current Medications Medications (Trade) Dose Ordered Sig/Kamila Start Time Stop Time Status Last Admin Dose Admin Dicyclomine HCl (Bentyl) 10 mg 1X ONCE 12/05/16 14:15 12/05/16 14:16 DC 12/05/16 14:19 10 MG Diphenoxylate HCl/ Atropine (Lomotil) 1 tab 1X ONCE 12/05/16 14:15 12/05/16 14:16 DC 12/05/16 14:18 1 TAB Ondansetron HCl (Zofran) 4 mg 1X ONCE 12/05/16 14:15 12/05/16 14:16 DC 12/05/16 14:19 4 MG Sodium Chloride 1,000 ml @ 1,000 mls/hr Q1H 12/05/16 14:00 12/05/16 14:59 DC 12/05/16 14:18 1,000 MLS/HR Allergies Allergies Allergies Coded Allergies Type Severity Reaction Last Updated Verified codeine Allergy Severe "swells up" 12/17/15 Yes Physical Exam Physical Exam Constitutional: Well developed, well nourished, no acute distress, non-toxic appearance. Alert, mentating normally, ambulatory, not tachycardic. HENT: Normocephalic, atraumatic, bilateral external ears normal, nose normal. [ ] Eyes: conjunctiva normal, no discharge. [] Neck: Normal range of motion, no stridor. [] Cardiovascular:Heart rate regular rhythm, no murmur [] Lungs & Thorax: Bilateral breath sounds clear to auscultation [] Abdomen: Bowel sounds normal, soft, no tenderness, no masses, no pulsatile masses. Abdomen is entirely benign and nontender on exam. Skin: Warm, dry, no erythema, no rash. [] Extremities: No tenderness, no cyanosis, no clubbing, ROM intact, no edema. [] Neurologic: Alert and oriented X 3, normal motor function, no focal deficits noted. [] Current Patient Data Vital Signs Vital Signs Date Time Temp Pulse Resp B/P (MAP) Pulse Ox O2 Delivery O2 Flow Rate FiO2 12/05/16 14:29 75 16 150/83 (105) 97 Room Air 12/05/16 13:35 97.6 97.6 Lab Values Laboratory Tests Test 12/05/16 13:45 12/05/16 14:10 Stool Occult Blood Negative (NEG) White Blood Count 11.4 x10^3/uL (4.0-11.0) H Red Blood Count 4.24 x10^6/uL (3.50-5.40) Hemoglobin 12.5 g/dL (12.0-15.5) Hematocrit 38.1 % (36.0-47.0) Mean Corpuscular Volume 90 fL (79-100) Mean Corpuscular Hemoglobin 29 pg (25-35) Mean Corpuscular Hemoglobin Concent 33 g/dL (31-37) Red Cell Distribution Width 14.4 % (11.5-14.5) Platelet Count 201 x10^3/uL (140-400) Neutrophils (%) (Auto) 74 % (31-73) H Lymphocytes (%) (Auto) 17 % (24-48) L Monocytes (%) (Auto) 8 % (0-9) Eosinophils (%) (Auto) 1 % (0-3) Basophils (%) (Auto) 1 % (0-3) Neutrophils # (Auto) 8.4 x10^3uL (1.8-7.7) H Lymphocytes # (Auto) 1.9 x10^3/uL (1.0-4.8) Monocytes # (Auto) 0.9 x10^3/uL (0.0-1.1) Eosinophils # (Auto) 0.1 x10^3/uL (0.0-0.7) Basophils # (Auto) 0.1 x10^3/uL (0.0-0.2) Sodium Level 138 mmol/L (136-145) Potassium Level 3.4 mmol/L (3.5-5.1) L Chloride Level 101 mmol/L (98-107) Carbon Dioxide Level 30 mmol/L (21-32) Anion Gap 7 (6-14) Blood Urea Nitrogen 10 mg/dL (7-20) Creatinine 0.8 mg/dL (0.6-1.0) Estimated GFR (Cockcroft-Gault) 74.2 BUN/Creatinine Ratio 13 (6-20) Glucose Level 105 mg/dL (70-99) H Calcium Level 9.0 mg/dL (8.5-10.1) Total Bilirubin 0.3 mg/dL (0.2-1.0) Aspartate Amino Transferase (AST) 14 U/L (15-37) L Alanine Aminotransferase (ALT) 18 U/L (14-59) Alkaline Phosphatase 75 U/L (46-116) Total Protein 7.6 g/dL (6.4-8.2) Albumin 3.7 g/dL (3.4-5.0) Albumin/Globulin Ratio 0.9 (1.0-1.7) L Lipase 109 U/L (73-393) Laboratory Tests 12/05/16 14:10 Laboratory Tests 12/05/16 14:10 EKG EKG [] Radiology/Procedures Radiology/Procedures [] Course & Med Decision Making Course & Med Decision Making Pertinent Labs and Imaging studies reviewed. (See chart for details) 56-year-old female who comes in with the complaint of lower abdominal pain and about 7 or 8 diarrhea episodes this morning. The patient does not give any history of inflammatory bowel disease. She does take Dexilant for "ulcers" but today does not have upper abdominal discomfort and has not had any vomiting of blood. Discussed with the patient and her daughter that we will give her some IV fluids, some medications for symptom control, and check some labs. They're agreeable to that plan. 1450 recheck of the patient. She appears much more comfortable. She is visiting with her daughter, getting her IV fluids. Labs unremarkable. Lipase normal. She is not anemic. White count very minimally elevated. I believe she can be discharged to home after a liter of IV fluids with treatment for diarrhea. They're agreeable to that plan. See instructions for plan. [] Dragon Disclaimer Dragon Disclaimer This electronic medical record was generated, in whole or in part, using a voice recognition dictation system. Departure Departure Impression: Primary Impression: Diarrhea Additional Impression: Abdominal pain Disposition: HOME, SELF-CARE Condition: IMPROVED Referrals: ROMAIN VARGHESE MD (PCP) Patient Instructions: Diarrhea, [id number] Additional Instructions: Drink plenty of fluids such as Gatorade. Purchase [id number] Imodium and take as instructed on the package. If not better in 2-3 days, see your doctor. Problem Qualifiers NAE ECHEVARRIA MD Dec 05, 2016 14:04
[2016-12-05] MEDS ORDERED: DIPHENOXYLATE/ATROPINE TABLET. PO ONE (14:15)
[2016-12-05] MEDS ORDERED: DICYCLOMINE 20 MG/2 ML AMPUL. IM ONE (14:15)
[2016-12-05] MEDS ORDERED: ONDANSETRON PF 4 MG/2 ML VIAL. IV ONE (14:15)
[2016-12-05 14:16] LABS: NEG OBC FOB NEG; POS OBC FOB POS
[2016-12-05 14:20] LABS: BASO # 0.1 x10^3/uL (0.0-0.2); BASO % 1 % (0-3); EOS % 1 % (0-3); HEMATOCRIT 38.1 % (36.0-47.0); HEMOGLOBIN 12.5 g/dL (12.0-15.5); LYMPH # 1.9 x10^3/uL (1.0-4.8); LYMPH % 17 % (24-48); MEAN CORPUSCULAR HEMOGLOBIN 29 pg (25-35); MEAN CORPUSCULAR HGB CONC 33 g/dL (31-37); MEAN CORPUSCULAR VOLUME 90 fL (79-100); MONO % 8 % (0-9); NEUT % 74 % (31-73); PLATELET COUNT 201 x10^3/uL (140-400); RED BLOOD COUNT 4.24 x10^6/uL (3.50-5.40); RED CELL DISTRIBUTION WIDTH 14.4 % (11.5-14.5); WHITE BLOOD COUNT 11.4 x10^3/uL (4.0-11.0)
[2016-12-05 14:34] LABS: CREATININE 0.8 mg/dL (0.6-1.0); GFR 74.2; POTASSIUM 3.4 mmol/L (3.5-5.1)
[2016-12-05 14:42] LABS: ALBUMIN 3.7 g/dL (3.4-5.0); ALBUMIN/GLOBULIN RATIO 0.9 (1.0-1.7); TOTAL BILIRUBIN 0.3 mg/dL (0.2-1.0); TOTAL PROTEIN 7.6 g/dL (6.4-8.2)
[2016-12-05 15:26] VITALS: BP 119/96
[2016-12-06] MEDS ORDERED: HYDR-971 PO (19:22)
[2016-12-06] MEDS ORDERED: METR500T PO (19:22)
[2016-12-06] MEDS ORDERED: LEVO500T59 PO (19:22)
== END 2016-12-05 15:28 | disposition home or self-care (01) ==
LOC: ER 13:20
DX: R10.30 Lower abdominal pain, unspecified (principal); R19.7 Diarrhea, unspecified; J44.9 Chronic obstructive pulmonary disease, unspecified; Z98.51 Tubal ligation status; Z88.6 Allergy status to analgesic agent
CPT/HCPCS: 36415; 80053; 82274; 83690; 85025; 96361; 96372; 96374; 99284; J0500; J2405; J7030

== ENCOUNTER 2016-12-06 17:01 | Emergency (ER) | payer OTHER ==
[~2016-12-06] VITALS: Ht 165.1 cm; Wt 83.0 kg
[2016-12-06 17:10] VITALS: BP 154/91
--- NOTE | 2016-12-06 17:17 | PHYS DOC ---
Past Medical History Past Medical History: Anxiety, COPD, Diverticulosis, P.U.D., Seizure, Other Additional Past Medical Histor: PANIC ATTACKS Past Surgical History: Tubal ligation, Other Additional Past Surgical Histo: COLONOSCOPY Alcohol Use: Occasionally Drug Use: Benzodiazepine, Methamphetamine, Opiates Adult General Chief Complaint Chief Complaint: ABDOMINAL PAIN HPI HPI Patient is a 56 year old female presenting to the emergency department for evaluation of continued lower abdominal pain and bright red blood per rectum. She says that the abdominal pain and bleeding has been going on for approximately 2 days and was seen yesterday in the emergency department and discharged in stable condition. Patient's assessment was unremarkable and she had normal hemoglobin and vital signs. Patient says that the pain has not changed rather it has just persisted and she does not have anything to take for pain. Some discomfort with urination and she says that her stools are loose and going approximately 4-5 times daily. She denies any fevers chills nausea vomiting. She is in no obvious distress with normal vital signs. Review of Systems Review of Systems Constitutional: Denies fever or chills [] Eyes: Denies change in visual acuity, redness, or eye pain [] HENT: Denies nasal congestion or sore throat [] Respiratory: Denies cough or shortness of breath [] Cardiovascular: No additional information not addressed in HPI [] GI: + abdominal pain, nausea. No vomiting. + bloody stools, diarrhea [] : + dysuria Musculoskeletal: Denies back pain or joint pain [] Integument: Denies rash or skin lesions [] Neurologic: Denies headache, focal weakness or sensory changes [] Current Medications Current Medications Current Medications Medications (Trade) Dose Ordered Sig/Kamila Start Time Stop Time Status Last Admin Dose Admin Iohexol (Omnipaque 300 Mg/ml) 75 ml 1X ONCE 12/06/16 17:30 12/06/16 17:31 DC 12/06/16 17:30 75 ML Morphine Sulfate 5 mg 1X ONCE 12/06/16 17:30 12/06/16 17:31 DC 12/06/16 17:47 5 MG Ondansetron HCl (Zofran) 4 mg 1X ONCE 12/06/16 17:30 12/06/16 17:31 DC 12/06/16 17:46 4 MG Potassium Chloride (Klor-Con) 20 meq 1X ONCE 12/06/16 18:45 12/06/16 18:46 DC Sodium Chloride 1,000 ml @ 1,000 mls/hr 1X ONCE 12/06/16 17:30 12/06/16 18:29 DC 12/06/16 17:46 1,000 MLS/HR Allergies Allergies Allergies Coded Allergies Type Severity Reaction Last Updated Verified codeine Allergy Severe "swells up" 12/17/15 Yes Physical Exam Physical Exam Constitutional: Well developed, well nourished, no acute distress, non-toxic appearance. [] HENT: Normocephalic, atraumatic, bilateral external ears normal, oropharynx moist, no oral exudates, nose normal. [] Eyes: PERRLA, EOMI, conjunctiva normal, no discharge. [] Neck: Normal range of motion, no tenderness, supple, no stridor. [] Cardiovascular:Heart rate regular rhythm, no murmur [] Lungs & Thorax: Bilateral breath sounds clear to auscultation [] Abdomen: Bowel sounds normal, soft, + midline lower abdominal tenderness, no rebound or guarding, no masses, no pulsatile masses. [] Skin: Warm, dry, no erythema, no rash. [] Back: No tenderness, no CVA tenderness. [] Extremities: No tenderness, no cyanosis, no clubbing, ROM intact, no edema. [] Neurologic: Alert and oriented X 3, normal motor function, normal sensory function, no focal deficits noted. [] Current Patient Data Vital Signs Vital Signs Date Time Temp Pulse Resp B/P (MAP) Pulse Ox O2 Delivery O2 Flow Rate FiO2 12/06/16 17:47 20 94 Room Air 12/06/16 17:10 98.3 80 154/91 (112) 98.3 Lab Values Laboratory Tests Test 12/06/16 17:10 12/06/16 17:38 Urine Collection Type Unknown Urine Color Straw Urine Clarity Clear Urine pH 6.0 Urine Specific [place] 1.010 Urine Protein Negative mg/dL (NEG-TRACE) Urine Glucose (UA) Negative mg/dL (NEG) Urine Ketones (Stick) Negative mg/dL (NEG) Urine Blood Negative (NEG) Urine Nitrite Negative (NEG) Urine Bilirubin Negative (NEG) Urine Urobilinogen Dipstick 0.2 mg/dL (0.2 mg/dL) Urine Leukocyte Esterase Negative (NEG) Urine RBC 0 /HPF (0-2) Urine WBC Rare /HPF (0-4) Urine Squamous Epithelial Cells Few /LPF Urine Bacteria Few /HPF (0-FEW) Stool Occult Blood Positive (NEG) Urine Opiates Screen Neg (NEG) Urine Methadone Screen Neg (NEG) Urine Barbiturates Neg (NEG) Urine Phencyclidine Screen Neg (NEG) Urine Amphetamine/Methamphetamine Pos (NEG) Urine Benzodiazepines Screen Pos (NEG) Urine Cocaine Screen Neg (NEG) Urine Cannabinoids Screen Neg (NEG) Urine Ethyl Alcohol Neg (NEG) White Blood Count 9.1 x10^3/uL (4.0-11.0) Red Blood Count 4.15 x10^6/uL (3.50-5.40) Hemoglobin 12.4 g/dL (12.0-15.5) Hematocrit 37.5 % (36.0-47.0) Mean Corpuscular Volume 90 fL (79-100) Mean Corpuscular Hemoglobin 30 pg (25-35) Mean Corpuscular Hemoglobin Concent 33 g/dL (31-37) Red Cell Distribution Width 14.2 % (11.5-14.5) Platelet Count 189 x10^3/uL (140-400) Neutrophils (%) (Auto) 71 % (31-73) Lymphocytes (%) (Auto) 21 % (24-48) L Monocytes (%) (Auto) 6 % (0-9) Eosinophils (%) (Auto) 2 % (0-3) Basophils (%) (Auto) 1 % (0-3) Neutrophils # (Auto) 6.4 x10^3uL (1.8-7.7) Lymphocytes # (Auto) 1.9 x10^3/uL (1.0-4.8) Monocytes # (Auto) 0.6 x10^3/uL (0.0-1.1) Eosinophils # (Auto) 0.2 x10^3/uL (0.0-0.7) Basophils # (Auto) 0.0 x10^3/uL (0.0-0.2) Sodium Level 145 mmol/L (136-145) Potassium Level 3.3 mmol/L (3.5-5.1) L Chloride Level 108 mmol/L (98-107) H Carbon Dioxide Level 32 mmol/L (21-32) Anion Gap 5 (6-14) L Blood Urea Nitrogen 8 mg/dL (7-20) Creatinine 0.8 mg/dL (0.6-1.0) Estimated GFR (Cockcroft-Gault) 74.2 BUN/Creatinine Ratio 10 (6-20) Glucose Level 128 mg/dL (70-99) H Calcium Level 8.1 mg/dL (8.5-10.1) L Magnesium Level 1.9 mg/dL (1.8-2.4) Total Bilirubin 0.1 mg/dL (0.2-1.0) L Aspartate Amino Transferase (AST) 12 U/L (15-37) L Alanine Aminotransferase (ALT) 17 U/L (14-59) Alkaline Phosphatase 78 U/L (46-116) Total Protein 7.0 g/dL (6.4-8.2) Albumin 3.2 g/dL (3.4-5.0) L Albumin/Globulin Ratio 0.8 (1.0-1.7) L Lipase 119 U/L (73-393) Ethyl Alcohol Level < 10 mg/dL (0-10) Laboratory Tests 12/06/16 17:38 Laboratory Tests 12/06/16 17:38 EKG EKG [] Radiology/Procedures Radiology/Procedures CT SCAN OF THE ABDOMEN AND PELVIS WITH IV CONTRAST. History: Abdominal pain Comparison: October 08, 2016. Procedure: Contiguous axial images of the abdomen and pelvis were performed after the administration of 75 cc of Isovue 370 IV contrast and oral contrast. CT Abdomen with contrast: Findings: Liver: Unremarkable Spleen: Unremarkable Pancreas: Unremarkable Adrenal Glands: Unremarkable Kidneys: Unremarkable There is no mass or lymphadenopathy. There is no free air. There is no free fluid. There is mild distention the colon. CT Pelvis with Contrast: Findings: The urinary bladder appears normal. There is no free fluid. There is no lymphadenopathy. There is moderate sigmoid diverticula cyst. There is moderate wall thickening the sigmoid colon without significant surrounding inflammation. Impression: Moderate wall thickening of the sigmoid colon is not consistent with diverticulitis but could be inflammatory or infectious colitis. There is no air in the wall to suggest ischemic colitis. An adenocarcinoma cannot be excluded. PQRS Compliance Statement: One or more of the following individualized dose reduction techniques were utilized for this examination: 1. Automated exposure control 2. Adjustment of the mA and/or kV according to patient size 3. Use of iterative reconstruction technique Electronically signed by: Charan Cannon III, MD (12/06/2016 6:31 PM) [facility] DICTATED and SIGNED BY: CHARAN CANNON III, MD DATE: 12/06/161819 Course & Med Decision Making Course & Med Decision Making Patient with CT and history and physical exam consistent with colitis. Patient has unchanged hemoglobin compared to yesterday and does not appear to have serious GI bleeding at this time. Her vital signs are normal and her repeat abdominal exam is benign. I spoke to her primary care provider Dr. Varghese and she agreed with outpatient treatment with Levaquin and Flagyl and prescribe [place] for pain and she has no appointment tomorrow to see the patient. Patient is agreeable with outpatient treatment which I think is most reasonable in this situation. Patient aware and agreeable with plan for discharge and verbalized understanding of the need for follow-up tomorrow in the strict ED return precautions discussed, worsening pain bleeding dizziness or other general concerns. Dragon Disclaimer Dragon Disclaimer This electronic medical record was generated, in whole or in part, using a voice recognition dictation system. Departure Departure Impression: Primary Impression: Colitis Additional Impressions: GI bleed Abdominal pain Disposition: HOME, SELF-CARE Condition: STABLE Referrals: ROMAIN VARGHESE MD (PCP) IRCARDO ANAYA MD Patient Instructions: Colitis Scripts Metronidazole (FLAGYL) 500 Mg Tablet 1 TAB PO BID, #13 TAB Prov: DAWN HYATT DO 12/06/16 Levofloxacin (LEVAQUIN) 500 Mg Tablet 1 TAB PO DAILY, #6 TAB Prov: DAWN HYATT DO 12/06/16 Hydrocodone/Apap 5-325 (NORCO 5-325 TABLET) 1 Each Tablet 1 TAB PO PRN Q6HRS Y for PAIN, #10 TAB 0 Refills Prov: DAWN HYATT DO 12/06/16 Problem Qualifiers DAWN HYATT DO Dec 06, 2016 17:17
[2016-12-06 17:26] LABS: BILIRUBIN,URINE NEGATIVE (NEG); GLUCOSE,URINE NEGATIVE (NEG); NITRITE,URINE NEGATIVE (NEG); PROTEIN,URINE NEGATIVE (NEG-TRACE); UROBILINOGEN,URINE 0.2 mg/dL (0.2 mg/dL)
[2016-12-06 17:30] LABS: NEG OBC FOB NEG
[2016-12-06] MEDS ORDERED: ONDANSETRON PF 4 MG/2 ML VIAL. IV ONE (17:30)
[2016-12-06] MEDS ORDERED: IOHEXOL 300 MG/ML 75 ML VIAL IV ONE (17:30)
[2016-12-06] MEDS ORDERED: MORPHINE SULFATE 10 MG/ML VIAL. IV ONE (17:30)
[2016-12-06] MEDS ORDERED: IV NORMAL SALINE 1000ML BAG 1,000 ML IV ONE (17:30)
[2016-12-06 17:31] LABS: POS OBC FOB POS
[2016-12-06 17:32] LABS: BARBITURATES NEG (NEG); BENZODIAZEPINES POS (NEG); CANNABINOIDS NEG (NEG); COCAINE NEG (NEG); METHADONE NEG (NEG); OPIATES NEG (NEG); PHENCYCLIDINE NEG (NEG)
[2016-12-06 17:34] LABS: BACTERIA,URINE FEW /HPF (0-FEW); RBC,URINE 0 /HPF (0-2); SQUAMOUS EPITHELIAL CELL,UR FEW /LPF; WBC,URINE RARE /HPF (0-4)
[2016-12-06 17:46] LABS: BASO % 1 % (0-3); EOS % 2 % (0-3); HEMATOCRIT 37.5 % (36.0-47.0); HEMOGLOBIN 12.4 g/dL (12.0-15.5); LYMPH # 1.9 x10^3/uL (1.0-4.8); LYMPH % 21 % (24-48); MEAN CORPUSCULAR HEMOGLOBIN 30 pg (25-35); MEAN CORPUSCULAR HGB CONC 33 g/dL (31-37); MEAN CORPUSCULAR VOLUME 90 fL (79-100); MONO % 6 % (0-9); NEUT % 71 % (31-73); PLATELET COUNT 189 x10^3/uL (140-400); RED BLOOD COUNT 4.15 x10^6/uL (3.50-5.40); RED CELL DISTRIBUTION WIDTH 14.2 % (11.5-14.5); WHITE BLOOD COUNT 9.1 x10^3/uL (4.0-11.0)
[2016-12-06 18:00] LABS: CALCIUM 8.1 mg/dL (8.5-10.1); CREATININE 0.8 mg/dL (0.6-1.0); GFR 74.2; POTASSIUM 3.3 mmol/L (3.5-5.1)
[2016-12-06 18:04] LABS: ALBUMIN 3.2 g/dL (3.4-5.0); ALBUMIN/GLOBULIN RATIO 0.8 (1.0-1.7); MAGNESIUM 1.9 mg/dL (1.8-2.4); TOTAL BILIRUBIN 0.1 mg/dL (0.2-1.0)
--- NOTE | 2016-12-06 18:35 | RAD ---
CT SCAN OF THE ABDOMEN AND PELVIS WITH IV CONTRAST. History: Abdominal pain Comparison: October 08, 2016. Procedure: Contiguous axial images of the abdomen and pelvis were performed after the administration of 75 cc of Isovue 370 IV contrast and oral contrast. CT Abdomen with contrast: Findings: Liver: Unremarkable Spleen: Unremarkable Pancreas: Unremarkable Adrenal Glands: Unremarkable Kidneys: Unremarkable There is no mass or lymphadenopathy. There is no free air. There is no free fluid. There is mild distention the colon. CT Pelvis with Contrast: Findings: The urinary bladder appears normal. There is no free fluid. There is no lymphadenopathy. There is moderate sigmoid diverticula cyst. There is moderate wall thickening the sigmoid colon without significant surrounding inflammation. Impression: Moderate wall thickening of the sigmoid colon is not consistent with diverticulitis but could be inflammatory or infectious colitis. There is no air in the wall to suggest ischemic colitis. An adenocarcinoma cannot be excluded. PQRS Compliance Statement: One or more of the following individualized dose reduction techniques were utilized for this examination: 1. Automated exposure control 2. Adjustment of the mA and/or kV according to patient size 3. Use of iterative reconstruction technique Electronically signed by: Farrukh French III, MD (12/06/2016 6:31 PM) [facility]
[2016-12-06] MEDS ORDERED: POTASSIUM CHLORIDE 20 MEQ TABLET.ER. PO ONE (18:45)
[2016-12-06] MEDS ORDERED: METR500T PO (19:22)
[2016-12-06] MEDS ORDERED: LEVO500T59 PO (19:22)
[2016-12-06] MEDS ORDERED: HYDR-971 PO (19:22)
[2016-12-06] MEDS ORDERED: HYDROcodone/APAP 5/325MG 1 TAB TABLET PO ONE (19:45)
[2016-12-06] MEDS ORDERED: metroNIDAZOLE 500 MG TABLET PO ONE (19:45)
== END 2016-12-06 19:35 | disposition home or self-care (01) ==
LOC: ER 17:01
DX: K52.9 Noninfective gastroenteritis and colitis, unspecified (principal); K92.2 Gastrointestinal hemorrhage, unspecified; J44.9 Chronic obstructive pulmonary disease, unspecified; F41.0 Panic disorder [episodic paroxysmal anxiety]; Z87.11 Personal history of peptic ulcer disease; Z88.5 Allergy status to narcotic agent
CPT/HCPCS: 36415; 74177; 80053; 80307; 81001; 82274; 83690; 83735; 85025; 96361; 96374; 96375; 99285; G0480; J2270; J2405; J7030; Q9967; G0479

== ENCOUNTER → 2016-12-28 | Day surgery (SDC) | payer OTHER ==
[~2016-12-28] MED LIST changes: +DEXL60CA2 PO; +DICY20TA3 PO; +IV RINGERS,LACTATED 1000ML 1,000 ML IV SCH; +LEVO500T59 PO; +LIDOCAINE 1% PF 2 ML VIAL. ID PRN; +LIDOCAINE 2% PF Vial for OR 5 ML VIAL. ONE; +METR500T PO; +MIDAZOLAM HCL/PF 2 MG/2 ML VIAL. IV PRN; +PROPOFOL 20 ML IV ONE; +fentaNYL PF VIAL 100 MCG/2 ML VIAL IV PRN
[2016-12-28 13:38] VITALS: BP 124/77
== END | disposition home or self-care (01) ==
LOC: ENDOS 11:24
PROVIDERS: ATTEND Internal Medicine Gastroenterology
DX: K22.2 Esophageal obstruction (principal); K29.50 Unspecified chronic gastritis without bleeding; J45.909 Unspecified asthma, uncomplicated; K21.9 Gastro-esophageal reflux disease without esophagitis; F41.9 Anxiety disorder, unspecified; F17.200 Nicotine dependence, unspecified, uncomplicated; Z88.6 Allergy status to analgesic agent; Z72.0 Tobacco use
CPT/HCPCS: 43235; 43450; J2704; J2001

== ENCOUNTER → 2017-01-10 | Outpatient (CLI) | payer OTHER ==
[2016-12-28 13:38] VITALS: BP 124/77
[~2017-01-10] MED LIST changes: -IV RINGERS,LACTATED 1000ML 1,000 ML IV SCH; -LIDOCAINE 1% PF 2 ML VIAL. ID PRN; -LIDOCAINE 2% PF Vial for OR 5 ML VIAL. ONE; -MIDAZOLAM HCL/PF 2 MG/2 ML VIAL. IV PRN; -PROPOFOL 20 ML IV ONE; -fentaNYL PF VIAL 100 MCG/2 ML VIAL IV PRN
--- NOTE | 2017-01-11 14:35 | EEG ---
DATE OF SERVICE: 01/10/2017 This EEG number [id number] performed on 01/10/2017. OBJECTIVE: The patient is a 56-year-old female with a history of seizures. DESCRIPTION: This is a digital study. Electrodes are placed according to the international 10-20 system. Bipolar and referential montages are available. Activation procedures typically include hyperventilation and intermittent photic stimulation. INTERPRETATION: The waking background consists of 9-10 Hz, 50-100 microvolt activity, symmetrically distributed over parietooccipital regions and reactive to eye opening. Hyperventilation and intermittent photic stimulation are noncontributory. Stage I sleep is achieved with normal electroencephalogram patterns. Pathology Secretary made note of possible frontal sharp waves, but I do not believe these are present. IMPRESSION: This electroencephalogram with the patient awake and sleep is within normal limits. There is no focal, paroxysmal, or epileptiform activity. Thank you for letting us help with the patient's care. SHORTY RODRIGUEZ MD DR: VAL/satnam JOB#: [id number] / [id number] RIVER Meyer MD
== END | disposition home or self-care (01) ==
LOC: RT 09:38
PROVIDERS: ATTEND Psychiatry & Neurology Neurology with Special Qualifications in Child Neurology
DX: F31.89 Other bipolar disorder (principal); R06.4 Hyperventilation; R56.9 Unspecified convulsions
CPT/HCPCS: 95816

== ENCOUNTER 2017-01-17 17:20 | Emergency (ER) | payer OTHER ==
[~2017-01-17] VITALS: Ht 165.1 cm; Wt 86.2 kg
--- NOTE | 2017-01-17 17:43 | PHYS DOC ---
Past Medical History Past Medical History: Anxiety, COPD, Diverticulosis, P.U.D., Seizure, Other Additional Past Medical Histor: PANIC ATTACKS Past Surgical History: Tubal ligation, Other Additional Past Surgical Histo: COLONOSCOPY Alcohol Use: Occasionally Drug Use: Benzodiazepine, Methamphetamine, Opiates Adult General Chief Complaint Chief Complaint: VAGINAL PROBLEM HPI HPI Patient is a 56 year old F who presents with suprapubic pain and increased urinary frequency. Patient states that every time she stands up she feels like just with the bathroom and feels like her bladder is getting fall out of her vagina. Patient denies any fevers. Patient states she has a appointment tomorrow with her PCP to further evaluate her symptoms. Patient denies any vaginal discharge. Patient states she's had 8 kids vaginally. Patient denies any nausea or vomiting. Patient denies any diarrhea. Patient is no other complaints. Review of Systems Review of Systems GEN: Denies fevers, chills, sweats HEENT: Denies blurred vision, sore throat CV: Denies chest pain RESP: Denies shortness of air, cough GI: Suprapubic pain with increased urinary frequency NEURO: Denies confusion, dizziness MSK: Denies weakness, joint pain/swelling All other systems were reviewed and found to be within normal limits, except as documented in this note. Current Medications Current Medications Current Medications Medications (Trade) Dose Ordered Sig/Kamila Start Time Stop Time Status Last Admin Dose Admin Info (Do NOT chart on this entry -- for MONITORING) 1 each PRN DAILY PRN 01/17/17 19:45 01/19/17 19:44 Iohexol (Omnipaque 300 Mg/ml) 75 ml 1X ONCE 01/17/17 19:45 01/17/17 19:46 DC 01/17/17 19:40 75 ML Allergies Allergies Allergies Coded Allergies Type Severity Reaction Last Updated Verified codeine Allergy Severe "swells up" 12/28/16 Yes Physical Exam Physical Exam GEN.: No apparent distress. Alert and oriented. HEENT: Head is normocephalic, atraumatic NECK: Supple. LUNGS: CTAB. HEART: RRR, S1, S2 present. Peripheral pulses intact ABDOMEN: Soft, tender to palpation suprapubic, no rebound tenderness, no abdominal distention. Positive bowel sounds. EXTREMITIES: Without any cyanosis. NEUROLOGIC: Normal speech, normal tone PSYCHIATRIC: Normal affect, normal mood. SKIN: No ulcerations Current Patient Data Vital Signs Vital Signs Date Time Temp Pulse Resp B/P (MAP) Pulse Ox O2 Delivery O2 Flow Rate FiO2 01/17/17 20:56 71 16 131/64 (86) 98 Room Air 01/17/17 17:35 98.5 98.5 Lab Values Laboratory Tests Test 01/17/17 17:27 01/17/17 17:50 01/17/17 19:07 Urine Collection Type Unknown Urine Color Yellow Urine Clarity Clear Urine pH 6.0 Urine Specific [place] 1.025 Urine Protein Negative mg/dL (NEG-TRACE) Urine Glucose (UA) Negative mg/dL (NEG) Urine Ketones (Stick) Negative mg/dL (NEG) Urine Blood Negative (NEG) Urine Nitrite Negative (NEG) Urine Bilirubin Negative (NEG) Urine Urobilinogen Dipstick 0.2 mg/dL (0.2 mg/dL) Urine Leukocyte Esterase Negative (NEG) Urine RBC 0 /HPF (0-2) Urine WBC 0 /HPF (0-4) Urine Squamous Epithelial Cells Mod /LPF Urine Bacteria Few /HPF (0-FEW) Urine Mucus Mod /LPF White Blood Count 7.2 x10^3/uL (4.0-11.0) Red Blood Count 4.42 x10^6/uL (3.50-5.40) Hemoglobin 13.0 g/dL (12.0-15.5) Hematocrit 39.6 % (36.0-47.0) Mean Corpuscular Volume 89 fL (79-100) Mean Corpuscular Hemoglobin 29 pg (25-35) Mean Corpuscular Hemoglobin Concent 33 g/dL (31-37) Red Cell Distribution Width 14.4 % (11.5-14.5) Platelet Count 194 x10^3/uL (140-400) Neutrophils (%) (Auto) 59 % (31-73) Lymphocytes (%) (Auto) 29 % (24-48) Monocytes (%) (Auto) 10 % (0-9) H Eosinophils (%) (Auto) 1 % (0-3) Basophils (%) (Auto) 1 % (0-3) Neutrophils # (Auto) 4.2 x10^3uL (1.8-7.7) Lymphocytes # (Auto) 2.1 x10^3/uL (1.0-4.8) Monocytes # (Auto) 0.7 x10^3/uL (0.0-1.1) Eosinophils # (Auto) 0.1 x10^3/uL (0.0-0.7) Basophils # (Auto) 0.0 x10^3/uL (0.0-0.2) Sodium Level 143 mmol/L (136-145) Potassium Level 4.4 mmol/L (3.5-5.1) Chloride Level 107 mmol/L (98-107) Carbon Dioxide Level 27 mmol/L (21-32) Anion Gap 9 (6-14) Blood Urea Nitrogen 16 mg/dL (7-20) Creatinine 0.8 mg/dL (0.6-1.0) Estimated GFR (Cockcroft-Gault) 74.2 BUN/Creatinine Ratio 20 (6-20) Glucose Level 127 mg/dL (70-99) H Calcium Level 8.6 mg/dL (8.5-10.1) Total Bilirubin 0.2 mg/dL (0.2-1.0) Aspartate Amino Transferase (AST) 16 U/L (15-37) Alanine Aminotransferase (ALT) 12 U/L (14-59) L Alkaline Phosphatase 64 U/L (46-116) Total Protein 7.1 g/dL (6.4-8.2) Albumin 3.2 g/dL (3.4-5.0) L Albumin/Globulin Ratio 0.8 (1.0-1.7) L Ethyl Alcohol Level < 10 mg/dL (0-10) Lactic Acid Level 1.0 mmol/L (0.4-2.0) Laboratory Tests 01/17/17 17:50 Laboratory Tests 01/17/17 17:50 EKG EKG [] Radiology/Procedures Radiology/Procedures CT scan abdomen pelvis: IMPRESSION: 1. Interval improvement in inflammatory changes of the sigmoid colon/descending colon. There is persistent wall thickening and underlying mass cannot be excluded. Recommend correlation with recent colonoscopy. 2. Otherwise no acute findings. 3. Small hiatal hernia with nonspecific wall thickening of the distal thoracic esophagus. 4. Lower lumbar spondylosis with suspected moderate central stenosis at L3-L4.[] Course & Med Decision Making Course & Med Decision Making Pertinent Labs and Imaging studies reviewed. (See chart for details) ED course: Patient was seen and examined emergency room CBC, CMP, UA were ordered Updated patient on lab work and since she is still having superpubic tenderness we'll obtain a CT scan and pelvis with contrast 2116:Updated patient on CT findings and discussed the possibility of bladder letdown in which she agreed is most likely the cause to her pain and came in to figure out if there was anything else causing it. Patient states his appointment tomorrow with her PCP to further evaluate the bladder letdown and possible options for surgical correction. I recommended the patient keep the appointment as scheduled. MDM: After reviewing the chart, CC/HPI/PMH, physical exam, [lab results], [ radiological results], I do not believe the patient has a intra-abdominal emergency warranting further workup and/or admission at this time. I believe the patient's symptoms are related to bladder letdown and she has scheduled an appointment for tomorrow to further evaluate this. Patient is stable for discharge. Additional verbal discharge instructions were provided to the patient and that if symptoms get worse or any new symptoms arise that are worrisome to the patient she is to return to the emergency room immediately [] Dragon Disclaimer Dragon Disclaimer This electronic medical record was generated, in whole or in part, using a voice recognition dictation system. Departure Departure Impression: Primary Impression: Abdominal pain Disposition: 01 HOME, SELF-CARE Condition: IMPROVED Referrals: ROMAIN ARZOLA MD (PCP) Patient Instructions: Abdominal Pain (Nonspecific) Additional Instructions: Please keep your appointment with your family doctor tomorrow MANGO RESTREPO DO Jan 17, 2017 17:43
[2017-01-17 17:45] LABS: BILIRUBIN,URINE NEGATIVE (NEG); GLUCOSE,URINE NEGATIVE (NEG); NITRITE,URINE NEGATIVE (NEG); PROTEIN,URINE NEGATIVE (NEG-TRACE); UROBILINOGEN,URINE 0.2 mg/dL (0.2 mg/dL)
[2017-01-17 17:51] LABS: BACTERIA,URINE FEW /HPF (0-FEW); RBC,URINE 0 /HPF (0-2); SQUAMOUS EPITHELIAL CELL,UR MOD /LPF; WBC,URINE 0 /HPF (0-4)
[2017-01-17 18:05] LABS: BASO % 1 % (0-3); EOS % 1 % (0-3); HEMATOCRIT 39.6 % (36.0-47.0); LYMPH # 2.1 x10^3/uL (1.0-4.8); LYMPH % 29 % (24-48); MEAN CORPUSCULAR HEMOGLOBIN 29 pg (25-35); MEAN CORPUSCULAR HGB CONC 33 g/dL (31-37); MEAN CORPUSCULAR VOLUME 89 fL (79-100); MONO % 10 % (0-9); NEUT % 59 % (31-73); PLATELET COUNT 194 x10^3/uL (140-400); RED BLOOD COUNT 4.42 x10^6/uL (3.50-5.40); RED CELL DISTRIBUTION WIDTH 14.4 % (11.5-14.5); WHITE BLOOD COUNT 7.2 x10^3/uL (4.0-11.0)
[2017-01-17 18:17] LABS: CALCIUM 8.6 mg/dL (8.5-10.1); CREATININE 0.8 mg/dL (0.6-1.0); GFR 74.2; POTASSIUM 4.4 mmol/L (3.5-5.1)
[2017-01-17 18:23] LABS: ALBUMIN 3.2 g/dL (3.4-5.0); ALBUMIN/GLOBULIN RATIO 0.8 (1.0-1.7); TOTAL BILIRUBIN 0.2 mg/dL (0.2-1.0); TOTAL PROTEIN 7.1 g/dL (6.4-8.2)
[2017-01-17] MEDS ORDERED: IOHEXOL 300 MG/ML 100ML VIAL. IV ONE (19:45)
[2017-01-17] MEDS ORDERED: CONTRAST GIVEN MC PRN (19:45)
--- NOTE | 2017-01-17 20:04 | RAD ---
CT ABD PELV W/ IV CONTRST ONLY dated 01/17/2017 7:38 PM Indication: Pain.suprapubic pain, [id number] 75ml, prior sent from December. Comparison: 12/06/2016 Technique: Contiguous axial imaging of the abdomen and pelvis performed after the administration of 75 cc Omnipaque 300. One or more of the following individualized dose reduction techniques were utilized for this examination: 1. Automated exposure control 2. Adjustment of the mA and/or kV according to patient size 3. Use of iterative reconstruction technique Findings: Limited images of lung bases are clear. Heart size within normal limits. No pleural or pericardial effusion. Small hiatal hernia with mild wall thickening of the distal thoracic esophagus. Liver, spleen, pancreas, adrenal glands unremarkable. The gallbladder is collapsed and not well evaluated. Kidneys are symmetric in size and enhancement. No hydronephrosis. Unopacified GI tract is normal in caliber and contour. Mild wall thickening of the sigmoid colon, descending colon with scattered diverticula, improved from prior exam. No inflammatory changes in the mesentery. No ascites or lymphadenopathy. The appendix is normal in caliber. Abdominal aorta normal in caliber. Images of pelvis a nondistended urinary bladder. Uterus and adnexa are unremarkable. No free pelvic fluid or pelvic lymphadenopathy. Bone windows show no acute findings. Multilevel spondylosis. There is suspected moderate central stenosis at L3-L4. IMPRESSION: 1. Interval improvement in inflammatory changes of the sigmoid colon/descending colon. There is persistent wall thickening and underlying mass cannot be excluded. Recommend correlation with recent colonoscopy. 2. Otherwise no acute findings. 3. Small hiatal hernia with nonspecific wall thickening of the distal thoracic esophagus. 4. Lower lumbar spondylosis with suspected moderate central stenosis at L3-L4. Electronically signed by: Jefferson Ackerman MD (01/17/2017 8:00 PM) [place] [id number]
[2017-01-17 20:56] VITALS: BP 131/64
== END 2017-01-17 21:22 | disposition home or self-care (01) ==
LOC: ER 17:20
DX: R10.30 Lower abdominal pain, unspecified (principal); J44.9 Chronic obstructive pulmonary disease, unspecified; M47.816 Spondylosis without myelopathy or radiculopathy, lumbar region; K44.9 Diaphragmatic hernia without obstruction or gangrene; Z98.51 Tubal ligation status; Z88.5 Allergy status to narcotic agent
CPT/HCPCS: 36415; 74177; 80053; 81001; 83605; 85025; 99285; G0480; Q9967

== ENCOUNTER → 2017-01-30 | Day surgery (SDC) | payer OTHER ==
[~2017-01-30] MED LIST changes: +HYDROmorphone 2 MG/ML VIAL IV PRN; +IV RINGERS,LACTATED 1000ML 1,000 ML IV SCH; +LIDOCAINE 1% PF 2 ML VIAL. ID PRN; +MORPHINE SULFATE 2 MG/ML DISP.SYRIN. IV PRN; +ONDANSETRON PF 4 MG/2 ML VIAL. IV PRN; +PROCHLORPERAZINE 10 MG/2 ML VIAL. IV PRN; +PROPOFOL 40 ML IV ONE; +fentaNYL PF VIAL 100 MCG/2 ML VIAL IV PRN
[2017-01-30 17:31] VITALS: BP 138/65
--- NOTE | 2017-01-31 04:15 | CONS ---
DATE OF CONSULTATION: 01/30/2017 REASON FOR PROCEDURE: Abnormal CT scan, left lower quadrant tenderness and thickened sigmoid colon on CT. HISTORY OF PRESENT ILLNESS: This is a 56-year-old female with past medical history significant for constipation and dysphagia who is seen with left lower quadrant abdominal pain. CT revealed thickened sigmoid. Interval colonoscopy is recommended to assess. Denies any bleeding, denies any change in her weight. States the pain is still persistent. Also, has history of COPD. PAST MEDICAL HISTORY: COPD, hypertension, status post CVA. ALLERGIES: CODEINE. MEDICATIONS: Include hydrocodone, albuterol, alprazolam, aspirin, Dexilant, dicyclomine and Depakote. SOCIAL HISTORY: She is a smoker, drinker and drug abuser. FAMILY HISTORY: Noncontributory. REVIEW OF SYSTEMS: Per records. PHYSICAL EXAMINATION: GENERAL: Reveals a well-nourished, well-developed, female. VITAL SIGNS: Temperature is 98.3, pulse is 60, respiratory rate is 18. HEENT: Normocephalic and atraumatic. Pupils and extraocular movements are not tested. Anicteric. NECK: Supple. LUNGS: Clear. CARDIOVASCULAR: Reveals S1, S2 without S3, S4 or appreciable murmur. ABDOMEN: Reveals soft abdomen, normal bowel sounds, without appreciable splenomegaly. EXTREMITIES: Reveals no cyanosis, clubbing or edema. IMPRESSION: Abnormal CAT scan with thickened sigmoid colon. RECOMMENDATION: Colonoscopy to further assess. Risks and benefits of procedure have been previously discussed. The patient is willing to proceed at this time. RICARDO ANAYA MD DR: TINY/satnam JOB#: [id number] / [id number]
--- NOTE | 2017-02-01 13:43 | PATHOLOGY ---
PATHOLOGY REPORT * * * * * * * * FINAL DIAGNOSIS: Colon biopsy, sigmoid polyp: - Hyperplastic polyp. (JPM:mimi; 02/01/2017) COMMENT: There are no adenomatous changes or evidence of malignancy. REPORT ELECTRONICALLY SIGNED BY: Sandip Olson M.D. DATE/TIME: 02/01/2017 13:40 * * * * * * * * GROSS PATHOLOGY: Received in formalin labeled "Malia Larkin, sigmoid polyp," is a segment of ray soft tissue measuring 0.6 cm in maximum dimension. The specimen is submitted entirely in cassette A1. (TSD; 01/31/2017) INITIAL CPT CODE(S): A; 28389 Professional services performed [place] [address] Technical services performed by [id number] at [address] [place] [address], [facility] [address] [place] [address]. SPECIMEN(S) RECEIVED: A.Sigmoid polyp CLINICAL HISTORY: Abnormal GI imaging PATIENT: MALIA LARKIN /AGE: 1 1960 (Age: 56) PATIENT #: [id number] ALT CASE #: SPECIMEN COLLECTION DATE: 01/30/2017 SPECIMEN RECEIVED DATE: 01/31/2017 [facility] - [id number] [place] [address] - PHONE: [phone] * * * END OF REPORT * * *
== END | disposition home or self-care (01) ==
LOC: SURG 15:26
PROVIDERS: ATTEND Internal Medicine Gastroenterology
DX: K63.5 Polyp of colon (principal); K64.0 First degree hemorrhoids; K57.30 Diverticulosis of large intestine without perforation or abscess without bleeding; I10 Essential (primary) hypertension; J44.9 Chronic obstructive pulmonary disease, unspecified; F17.200 Nicotine dependence, unspecified, uncomplicated; I25.2 Old myocardial infarction; K21.9 Gastro-esophageal reflux disease without esophagitis; F41.9 Anxiety disorder, unspecified; Z86.73 Personal history of transient ischemic attack (TIA), and cerebral infarction without residual deficits; Z88.6 Allergy status to analgesic agent; F32.9 Major depressive disorder, single episode, unspecified
CPT/HCPCS: 45380; 88305; J2704

== ENCOUNTER → 2017-03-13 | Outpatient (CLI) | payer OTHER | END | disposition home or self-care (01) | LOC: NM 10:28 | DX: K30 Functional dyspepsia (principal) | CPT/HCPCS: 78264; A9541 ==

== ENCOUNTER → 2017-05-11 | Outpatient (CLI) | payer OTHER ==
[2017-05-11] MEDS: REGADENOSON 0.4 MG/5 ML DISP.SYRIN. IV (10:59)
== END ==
LOC: NM 09:13
DX: Z01.810 Encounter for preprocedural cardiovascular examination (principal)
CPT/HCPCS: 78452; 93017; 96374; 96375; 96376; A9500; J2785

== ENCOUNTER 2017-06-14 21:44 | Emergency (ER) | payer OTHER ==
[2017-06-14 22:24] LABS: BILIRUBIN,URINE NEGATIVE (NEG); CLARITY,URINE CLEAR; COLOR,URINE YELLOW; GLUCOSE,URINE NEGATIVE (NEG); NITRITE,URINE NEGATIVE (NEG); PH,URINE 5.5; PROTEIN,URINE 30 mg/dL (NEG-TRACE); UROBILINOGEN,URINE 0.2 mg/dL (0.2 mg/dL)
[2017-06-14 22:30] LABS: BACTERIA,URINE FEW /HPF (0-FEW); RBC,URINE TNTC /HPF (0-2); WBC,URINE 20-40 /HPF (0-4)
[2017-06-14 22:31] LABS: SQUAMOUS EPITHELIAL CELL,UR MOD /LPF
[2017-06-14] MEDS: PHENAZOPYRIDINE 200 MG TABLET. PO (23:22)
[2017-06-14] MEDS: NITROFURANTOIN MONOHYD/M-CRYST 100 MG CAPSULE. PO (23:22)
== END 2017-06-15 00:03 | disposition home or self-care (01) ==
LOC: ER 06-15 00:03
DX: N30.01 Acute cystitis with hematuria (principal); F41.0 Panic disorder [episodic paroxysmal anxiety]; J44.9 Chronic obstructive pulmonary disease, unspecified; F17.210 Nicotine dependence, cigarettes, uncomplicated; F13.10 Sedative, hypnotic or anxiolytic abuse, uncomplicated; F15.10 Other stimulant abuse, uncomplicated; F11.10 Opioid abuse, uncomplicated; Z88.5 Allergy status to narcotic agent; Z90.710 Acquired absence of both cervix and uterus; Z98.51 Tubal ligation status
CPT/HCPCS: 81001; 87086; 99284

== ENCOUNTER 2017-06-24 20:21 | Emergency (ER) | payer OTHER ==
[2017-06-24 21:17] LABS: BILIRUBIN,URINE NEGATIVE (NEG); CLARITY,URINE CLEAR; COLOR,URINE YELLOW; GLUCOSE,URINE NEGATIVE (NEG); NITRITE,URINE NEGATIVE (NEG); PH,URINE 5.5; PROTEIN,URINE NEGATIVE (NEG-TRACE); UROBILINOGEN,URINE 0.2 mg/dL (0.2 mg/dL)
[2017-06-24 21:23] LABS: ADD MAN DIFF? NO
[2017-06-24 21:24] LABS: BASO % 1 % (0-3); EOS # 0.2 x10^3/uL (0.0-0.7); EOS % 2 % (0-3); HEMATOCRIT 36.7 % (36.0-47.0); HEMOGLOBIN 12.5 g/dL (12.0-15.5); LYMPH # 2.7 x10^3/uL (1.0-4.8); LYMPH % 31 % (24-48); MEAN CORPUSCULAR HEMOGLOBIN 31 pg (25-35); MEAN CORPUSCULAR HGB CONC 34 g/dL (31-37); MEAN CORPUSCULAR VOLUME 89 fL (79-100); MONO # 0.8 x10^3/uL (0.0-1.1); MONO % 9 % (0-9); NEUT # 4.9 x10^3uL (1.8-7.7); NEUT % 57 % (31-73); PLATELET COUNT 208 x10^3/uL (140-400); RED BLOOD COUNT 4.11 x10^6/uL (3.50-5.40); WHITE BLOOD COUNT 8.6 x10^3/uL (4.0-11.0)
[2017-06-24] MEDS: fentaNYL PF VIAL 100 MCG/2 ML VIAL IV (21:29)
[2017-06-24] MEDS: ONDANSETRON PF 4 MG/2 ML VIAL. IV (21:29)
[2017-06-24 21:35] LABS: ANION GAP 4 (6-14); BLOOD UREA NITROGEN 14 mg/dL (7-20); BUN/CREATININE RATIO 18 (6-20); CALCIUM 9.2 mg/dL (8.5-10.1); CARBON DIOXIDE 31 mmol/L (21-32); CHLORIDE 107 mmol/L (98-107); CREATININE 0.8 mg/dL (0.6-1.0); GFR 73.9; GLUCOSE 107 mg/dL (70-99); POTASSIUM 4.4 mmol/L (3.5-5.1); SODIUM 142 mmol/L (136-145)
[2017-06-24 21:37] LABS: BACTERIA,URINE MODERATE /HPF (0-FEW); SQUAMOUS EPITHELIAL CELL,UR MOD /LPF; WBC,URINE >40 /HPF (0-4)
[2017-06-24 21:42] LABS: ALBUMIN 3.2 g/dL (3.4-5.0); ALBUMIN/GLOBULIN RATIO 0.8 (1.0-1.7); ALK PHOS 69 U/L (46-116); ALT (SGPT) 15 U/L (14-59); AST (SGOT) 10 U/L (15-37); C-REACTIVE PROTEIN 10.1 mg/L (0-3.3); LIPASE 136 U/L (73-393); TOTAL BILIRUBIN 0.2 mg/dL (0.2-1.0); TOTAL PROTEIN 7.1 g/dL (6.4-8.2)
[2017-06-24] MEDS ORDERED: CONTRAST GIVEN MC (23:30)
[2017-06-24] MEDS: IOHEXOL 300 MG/ML 100ML VIAL. IV (23:31)
== END 2017-06-25 01:00 | disposition home or self-care (01) ==
LOC: ER 06-25 01:00
DX: N39.0 Urinary tract infection, site not specified (principal); G89.18 Other acute postprocedural pain; G89.29 Other chronic pain; J44.9 Chronic obstructive pulmonary disease, unspecified; F41.9 Anxiety disorder, unspecified; F15.10 Other stimulant abuse, uncomplicated; F14.10 Cocaine abuse, uncomplicated; F19.10 Other psychoactive substance abuse, uncomplicated; Z90.710 Acquired absence of both cervix and uterus; Z98.51 Tubal ligation status; Z88.5 Allergy status to narcotic agent
CPT/HCPCS: 36415; 74177; 80053; 81001; 83690; 85025; 86140; 87086; 96365; 96375; 99285-25; J0690; J2405; J3010; Q9967

== ENCOUNTER → 2018-03-01 | Outpatient (CLI) | payer OTHER ==
[2017-06-25 00:30] VITALS: BP 109/66
[~2018-03-01] MED LIST changes: +ALBU2.5V8 IH; +CEPH-264 PO; +DIVA-53 PO; -DIVA500T9 PO; +HYDR-3164 PO; -HYDR-971 PO; -HYDROmorphone 2 MG/ML VIAL IV PRN; -IV RINGERS,LACTATED 1000ML 1,000 ML IV SCH; -LIDOCAINE 1% PF 2 ML VIAL. ID PRN; -MORPHINE SULFATE 2 MG/ML DISP.SYRIN. IV PRN; +NITR100C62 PO; -ONDANSETRON PF 4 MG/2 ML VIAL. IV PRN; +PHEN-318 PO; -PROCHLORPERAZINE 10 MG/2 ML VIAL. IV PRN; -PROPOFOL 40 ML IV ONE; -PROVENTIL HFA6.7 GM IH; -fentaNYL PF VIAL 100 MCG/2 ML VIAL IV PRN
--- NOTE | 2018-03-01 16:50 | RAD ---
Examination: 3 views of the bilateral knees including weight-bearing frontal view, 4 views of the lumbar spine HISTORY: Chronic bilateral knee pain, low back pain, instability COMPARISON: None available FINDINGS: Bilateral knees: Moderate joint space loss identified in the medial compartments the bilateral knees. Mild joint space loss identified in the lateral compartment femoral compartments. 3 bony densities identified in the soft tissue of the right knee posteriorly projecting best on the lateral view could be soft tissue calcifications or loose bodies and popliteal cyst. MRI may be useful for further evaluation. Lumbar spine: The lumbar vertebral body heights are maintained. Moderate intervertebral disc height loss identified in the lumbar spine particularly at L3-L4, L4-L5, L5-S1 vertebral levels. Moderate multilevel degenerative changes identified in the facet joints IMPRESSION: 1. Tricompartmental degenerative changes bilateral knee joints, most in the medial compartments of the bilateral knees. 2. 3 bony densities identified in the soft tissue of the right knee posteriorly projecting best on the lateral view could be soft tissue calcifications or loose bodies and popliteal cyst. MRI may be useful for further evaluation. 3. Moderate degenerative changes lumbar spine. Electronically signed by: Javon West MD (03/01/2018 4:46 PM) [place] [id number]
== END | disposition home or self-care (01) ==
LOC: RAD 13:09
PROVIDERS: ATTEND Surgery
DX: M47.26 Other spondylosis with radiculopathy, lumbar region (principal); M17.0 Bilateral primary osteoarthritis of knee
CPT/HCPCS: 72100; 73562; 73565

== ENCOUNTER 2018-03-24 12:49 | Emergency (ER) | payer OTHER ==
[~2018-03-24] VITALS: Ht 160 cm; Wt 90.3 kg
[2018-03-24 12:50] VITALS: BP 148/94
[2018-03-24 13:30] LABS: BILIRUBIN,URINE NEGATIVE (NEG); CLARITY,URINE CLEAR; COLOR,URINE YELLOW; NITRITE,URINE NEGATIVE (NEG); PH,URINE 6.5; PROTEIN,URINE NEGATIVE (NEG-TRACE); UROBILINOGEN,URINE 0.2 mg/dL (0.2 mg/dL)
[2018-03-24 14:04] LABS: SQUAMOUS EPITHELIAL CELL,UR MOD /LPF
[2018-03-24 14:05] LABS: BACTERIA,URINE MODERATE /HPF (0-FEW); RBC,URINE 0 /HPF (0-2)
[2018-03-24] MEDS ORDERED: PHEN100T82 PO (14:23)
[2018-03-24] MEDS ORDERED: NITR100C62 PO (14:23)
--- NOTE | 2018-03-24 14:24 | PHYS DOC ---
Past Medical History Past Medical History: Anxiety, COPD, Diverticulosis, P.U.D., Seizure, Other Additional Past Medical Histor: PANIC ATTACKS Past Surgical History: Hysterectomy, Tubal ligation, Other Additional Past Surgical Histo: COLONOSCOPY Additional Information: 0.5 PPD Alcohol Use: Occasionally Drug Use: Benzodiazepine, Methamphetamine, Opiates Adult General Chief Complaint Chief Complaint: PAIN ON URINATION [facility] Patient is a 58 year old [f__sex] who presents with [] Review of Systems Review of Systems Constitutional: Denies fever or chills [] Eyes: Denies change in visual acuity, redness, or eye pain [] HENT: Denies nasal congestion or sore throat [] Respiratory: Denies cough or shortness of breath [] Cardiovascular: No additional information not addressed in HPI [] GI: Denies abdominal pain, nausea, vomiting, bloody stools or diarrhea [] : Denies dysuria or hematuria [] Musculoskeletal: Denies back pain or joint pain [] Integument: Denies rash or skin lesions [] Neurologic: Denies headache, focal weakness or sensory changes [] Endocrine: Denies polyuria or polydipsia [] All other systems were reviewed and found to be within normal limits, except as documented in this note. Allergies Allergies Allergies Coded Allergies Type Severity Reaction Last Updated Verified codeine Allergy Severe "swells up" 01/30/17 Yes Physical Exam Physical Exam Constitutional: Well developed, well nourished, no acute distress, non-toxic appearance. [] HENT: Normocephalic, atraumatic, bilateral external ears normal, oropharynx moist, no oral exudates, nose normal. [] Eyes: PERRLA, EOMI, conjunctiva normal, no discharge. [] Neck: Normal range of motion, no tenderness, supple, no stridor. [] Cardiovascular:Heart rate regular rhythm, no murmur [] Lungs & Thorax: Bilateral breath sounds clear to auscultation [] Abdomen: Bowel sounds normal, soft, no tenderness, no masses, no pulsatile masses. [] Skin: Warm, dry, no erythema, no rash. [] Back: No tenderness, no CVA tenderness. [] Extremities: No tenderness, no cyanosis, no clubbing, ROM intact, no edema. [] Neurologic: Alert and oriented X 3, normal motor function, normal sensory function, no focal deficits noted. [] Psychologic: Affect normal, judgement normal, mood normal. [] Current Patient Data Vital Signs Vital Signs Date Time Temp Pulse Resp B/P (MAP) Pulse Ox O2 Delivery O2 Flow Rate FiO2 03/24/18 12:50 98.0 94 18 148/94 (112) 96 Room Air 98.0 Lab Values Laboratory Tests Test 03/24/18 12:55 Urine Collection Type Unknown Urine Color Yellow Urine Clarity Clear Urine pH 6.5 Urine Specific Gerton 1.020 Urine Protein Negative mg/dL (NEG-TRACE) Urine Glucose (UA) Negative mg/dL (NEG) Urine Ketones (Stick) Negative mg/dL (NEG) Urine Blood Negative (NEG) Urine Nitrite Negative (NEG) Urine Bilirubin Negative (NEG) Urine Urobilinogen Dipstick 0.2 mg/dL (0.2 mg/dL) Urine Leukocyte Esterase Trace (NEG) Urine RBC 0 /HPF (0-2) Urine WBC 1-4 /HPF (0-4) Urine Squamous Epithelial Cells Mod /LPF Urine Bacteria Moderate /HPF (0-FEW) Urine Mucus Slight /LPF EKG EKG [] Radiology/Procedures Radiology/Procedures [] Course & Med Decision Making Course & Med Decision Making Pertinent Labs and Imaging studies reviewed. (See chart for details) [] Dragon Disclaimer Dragon Disclaimer This electronic medical record was generated, in whole or in part, using a voice recognition dictation system. Departure Departure Impression: Primary Impression: Urinary tract infection Additional Impression: Dysuria Disposition: 01 HOME, SELF-CARE Condition: STABLE Referrals: ROMAIN ARZOLA MD (PCP) Patient Instructions: Urinary Tract Infection, [id number] Additional Instructions: Fill prescription(s) and use as directed. Avoid bladder irritants such as caffeine, carbonation, and spicy foods. Increase clear fluids. Follow up with your primary care doctor if symptoms persist, return to the ER if symptoms worsen. Scripts Nitrofurantoin Monohyd/M-Cryst (MACROBID 100 MG CAPSULE) 100 Mg Capsule 1 CAP PO BID, #14 CAP Prov: LOLLY MONTIEL [employer] 03/24/18 Phenazopyridine Hcl (PYRIDIUM) 100 Mg Tablet 100 MG PO TID PRN for PAIN for 5 Days, #15 TAB 0 Refills Prov: LOLLY MONTIEL [employer] 03/24/18 Problem Qualifiers Primary Impression: Urinary tract infection Urinary tract infection type: site unspecified Hematuria presence: without hematuria Qualified Codes: N39.0 - Urinary tract infection, site not specified LOLLY MONTIEL [employer] Mar 24, 2018 14:24
== END 2018-03-24 14:38 | disposition home or self-care (01) ==
LOC: ER 12:49
DX: N39.0 Urinary tract infection, site not specified (principal); J44.9 Chronic obstructive pulmonary disease, unspecified; F17.200 Nicotine dependence, unspecified, uncomplicated; Z98.51 Tubal ligation status; Z90.710 Acquired absence of both cervix and uterus; Z88.5 Allergy status to narcotic agent
CPT/HCPCS: 81001; 87086; 99283

== ENCOUNTER → 2018-06-24 | Outpatient (CLI) | payer OTHER ==
[~2018-06-24] MED LIST changes: +IOHEXOL 240 MG/ML 50ML VIAL. PO ONE; +IOHEXOL 300 MG/ML 100ML VIAL. IV ONE; +IOHEXOL 300 MG/ML 100ML VIAL. PO ONE; +OMEP20CA10 PO; -OMEP20CA9 PO; +PHEN100T82 PO
--- NOTE | 2018-06-24 16:20 | RAD ---
CT of the abdomen and pelvis with IV contrast compared to similar study dated January 17, 2017 for ascites, abdominal pain, extremity swelling. TECHNIQUE: Contiguous helical 5 mm axial images are obtained from the apex of diaphragm to the pelvic floor following ministration of IV and oral contrast. Sagittal and coronal reformations are evaluated. FINDINGS: There is some scarring or atelectasis in the right middle lobe. Heart size within normal limits. Liver, pancreas, bilateral adrenal glands, bilateral kidneys, and gallbladder all unremarkable. There are antecedent granulomatous changes within the normal sized spleen. Moderate aortoiliac atherosclerosis is seen. Urinary bladder is decompressed. No free or loculated fluid collection is are seen within the abdomen or pelvis. There is inhomogeneous opacification of large and small bowel, with no areas of focal bowel wall thickening or bowel dilatation. Innumerable sigmoid diverticula are present without evidence of acute diverticulitis. Phleboliths are seen within the pelvis. Uterus and ovaries are absent. There are degenerative changes of the facets throughout the lumbar spine. No suspicious osteoblastic or osteolytic bone lesions are seen. Flowing marginal osteophytes thoracic spine. IMPRESSION: 1. Small band of atelectasis or scarring in the right middle lobe. 2. Innumerable sigmoid diverticula with no evidence of acute diverticulitis. 3. No evidence of abdominal ascites. 4. Other chronic changes as described. PQRS Compliance Statement: One or more of the following individualized dose reduction techniques were utilized for this examination: 1. Automated exposure control 2. Adjustment of the mA and/or kV according to patient size 3. Use of iterative reconstruction technique Electronically signed by: Paramjit Bui MD (06/24/2018 4:16 PM) [id number]
== END | disposition home or self-care (01) ==
LOC: CT 08:10
PROVIDERS: ATTEND Internal Medicine Gastroenterology
DX: K57.30 Diverticulosis of large intestine without perforation or abscess without bleeding (principal); I70.0 Atherosclerosis of aorta; I87.8 Other specified disorders of veins; M25.78 Osteophyte, vertebrae
CPT/HCPCS: 74177; Q9966; Q9967

== ENCOUNTER → 2018-07-04 | Outpatient (CLI) | payer OTHER ==
[~2018-07-04] MED LIST changes: +BARIUM SULFATE 60% 355 ML SUSP PO ONE; -IOHEXOL 240 MG/ML 50ML VIAL. PO ONE; -IOHEXOL 300 MG/ML 100ML VIAL. IV ONE; -IOHEXOL 300 MG/ML 100ML VIAL. PO ONE
--- NOTE | 2018-07-04 12:57 | RAD ---
Small bowel series, 07/04/2018: History: Abdominal pain The preliminary abdominal image demonstrates a nonspecific gas pattern. Serial digital abdominal radiographs were obtained following oral ingestion of liquid barium. 0.4 minutes of fluoroscopy time was also utilized with 3 fluoroscopic spot images recorded. The small bowel loops are of normal caliber with no evidence of thickening of their folds. There is normal transit of the barium through the small bowel, reaching the colon at 90 minutes. The terminal ileum is unremarkable. IMPRESSION: No significant small bowel abnormality is detected.
== END | disposition home or self-care (01) ==
LOC: RAD 09:26
PROVIDERS: ATTEND Internal Medicine Gastroenterology
DX: R10.9 Unspecified abdominal pain (principal)
CPT/HCPCS: 74250

== ENCOUNTER → 2018-08-01 | Outpatient (CLI) | payer OTHER ==
[~2018-08-01] MED LIST changes: -BARIUM SULFATE 60% 355 ML SUSP PO ONE; +CONTRAST GIVEN. MC PRN; +IOHEXOL 350 MG/ML 100 ML VIAL. IV ONE
[2018-08-01 10:02] LABS: CREATININE 0.8 mg/dL (0.6-1.0); GFR 73.7
--- NOTE | 2018-08-01 16:29 | RAD ---
CTA of the abdomen compared to contrast enhanced CT scan of the abdomen dated June 24, 2018 for diffuse abdominal pain. TECHNIQUE: Contiguous helical 0.5 mm axial images are obtained through the abdomen following administration of IV contrast in the arterial phase. Sagittal and coronal MIPS are evaluated as were 3-D volume rendered images of the aorta and vasculature. Nonvascular findings: There is calcified granuloma in the posterior left lung base. Distal esophagus is slightly patulous. Evaluation of solid organ parenchyma is somewhat limited by the arterial phase of enhancement, however no gross abnormality is are identified involving the liver, pancreas, spleen, bilateral adrenal glands, or bilateral kidneys. Granulomas changes are seen throughout the spleen. The splenic vein is quite prominent, but this is of doubtful clinical significance. Portal and mesenteric veins are patent. The gallbladder is contracted, and variably hyperdense, possibly due to arterial enhancement of the wall. No free or loculated fluid collections are identified. No suspicious adenopathy is evident. There are multilevel degenerative changes of the facets, and there is dish of the thoracic spine. No osteoblastic or osteolytic bone lesions. Vascular findings: There are mild atherosclerotic changes involving the distal aorta and common iliac arteries, with no significant stenoses identified. No aneurysms are seen. There is wide patency of the superior mesenteric, celiac, and inferior mesenteric arteries, with no peripheral visceral stenoses identified. No visceral aneurysms are seen. There is a single right renal artery and there are paired left renal arteries, all which are widely patent with no significant atherosclerosis. IMPRESSION: 1. Mild aortoiliac atherosclerosis with no significant visceral artery stenosis, vascular Reformation, or aneurysm. 2. Antecedent granulomatous disease in the lungs and spleen. Electronically signed by: Paramjit Bui MD (08/01/2018 4:26 PM) [id number]
== END | disposition home or self-care (01) ==
LOC: CT 09:35
PROVIDERS: ATTEND Internal Medicine Gastroenterology
DX: I70.0 Atherosclerosis of aorta (principal); J84.10 Pulmonary fibrosis, unspecified; D71 Functional disorders of polymorphonuclear neutrophils
CPT/HCPCS: 36415; 74175; 82565; 84520; Q9967

== ENCOUNTER → 2019-11-24 | Outpatient (CLI) | payer OTHER ==
[~2019-11-24] MED LIST changes: -ALBU2.5V8 IH; -CONTRAST GIVEN. MC PRN; -IOHEXOL 350 MG/ML 100 ML VIAL. IV ONE; -OMEP20CA10 PO; +OMEP20CA16 PO; +PROVENTIL HFA6.7 GM IH
== END | disposition home or self-care (01) ==
LOC: LAB 15:48
PROVIDERS: ATTEND Internal Medicine Gastroenterology
DX: Z01.812 Encounter for preprocedural laboratory examination (principal); Z20.828 Contact with and (suspected) exposure to other viral communicable diseases; R13.10 Dysphagia, unspecified
CPT/HCPCS: U0003-CS

== ENCOUNTER → 2019-11-27 | Day surgery (SDC) | payer MEDICAID ==
[~2019-11-27] MED LIST changes: +IV RINGERS,LACTATED 1000ML 1,000 ML IV SCH; +LIDOCAINE 2% PF 5 ML VIAL. ONE; +PROPOFOL 10 MG/ML (20ML) VIAL. IV ONE
[2019-11-27 13:25] VITALS: BP 141/78
--- NOTE | 2019-11-27 14:18 | HP ---
ADMIT DATE: 11/27/2019 UPDATED HISTORY AND PHYSICAL REFERRING PHYSICIAN: Tiffanie Varghese M.D. REASON FOR CONSULTATION: Dysphagia. HISTORY OF PRESENT ILLNESS: A 59-year-old female with past medical history significant for anxiety, asthma, colonic polyps, tobaccoism, gastroparesis is seen for recurrent dysphagia. It is felt in the lower esophagus and she does have difficulty with solids and pills. Her gastroparesis has been refractory to erythromycin with continued issues today. Consultation and dilatation is requested. PAST MEDICAL HISTORY: History of CVA, diverticulitis, tobaccoism. MEDICATIONS: Include Xanax, aspirin, and Depakote. FAMILY AND SOCIAL HISTORY: Significant for diabetes, breast cancer, colorectal cancer. PAST SURGICAL HISTORY: Status post hysterectomy. REVIEW OF SYSTEMS: Per records. PHYSICAL EXAMINATION: GENERAL: Reveals a well-nourished, well-developed female who is alert, cooperative, in no acute distress. VITAL SIGNS: Temperature 98.5, pulse 80, respiratory rate 20. LUNGS: Clear. CARDIOVASCULAR: Reveals an S1, S2 without S3, S4 or appreciable murmur. ABDOMEN: With a soft abdomen, normal bowel sounds, without appreciable hepatosplenomegaly. EXTREMITIES: Reveals no cyanosis, clubbing or edema. IMPRESSION: Dysphagia and differential includes Schatzki's ring, malignancy, achalasia, Mixon's, peptic stricture. Therefore, recommend upper endoscopy with possible biopsy and dilatation. Risks and benefits have been previously discussed. The patient was sent to perforation and she is willing to proceed. RICARDO ANAYA MD DR: TINY/satnam JOB#: [id number] / [id number] TIFFANIE Boogie MD
== END | disposition home or self-care (01) ==
LOC: ENDOS 11:04
PROVIDERS: ATTEND Internal Medicine Gastroenterology
DX: K29.50 Unspecified chronic gastritis without bleeding (principal); F41.9 Anxiety disorder, unspecified; K22.2 Esophageal obstruction; K31.84 Gastroparesis; J45.909 Unspecified asthma, uncomplicated; Z86.73 Personal history of transient ischemic attack (TIA), and cerebral infarction without residual deficits; Z83.3 Family history of diabetes mellitus; Z90.710 Acquired absence of both cervix and uterus; Z80.0 Family history of malignant neoplasm of digestive organs; Z98.890 Other specified postprocedural states; Z79.899 Other long term (current) drug therapy
CPT/HCPCS: 43450; J2704

== ENCOUNTER → 2020-04-23 | Outpatient (CLI) | payer MEDICAID ==
[2019-11-27 13:25] VITALS: BP 141/78
[~2020-04-23] MED LIST changes: -IV RINGERS,LACTATED 1000ML 1,000 ML IV SCH; -LIDOCAINE 2% PF 5 ML VIAL. ONE; -PROPOFOL 10 MG/ML (20ML) VIAL. IV ONE
--- NOTE | 2020-04-25 08:14 | RAD ---
INDICATION: Reason: REMOTE TRAUMA OF TAIL BONE. LUMBAGO. SUPINE/WEIGHT BEARING VIEWS COCCYX. / Spl. I nstructions: / History: COMPARISON: CT from June 2018 IMPRESSION: Lumbar spine: 4 views obtained. Severe degenerative changes the lumbar spine with severe facet hypert rophy as well as osteophyte formation at the vertebral body endplates. This likely contributes to mul tilevel central canal and neural foraminal stenosis. A definite acute fracture line is not seen. Dege nerative changes the hips. Sacroiliac: 2 views obtained. Some limitation secondary to overlying structures obscuring but a defin ite fracture is not seen. Calcifications within the pelvis which is commonly secondary to phleboliths Electronically signed by: Cameron Pappas MD (04/25/2020 8:12 AM) [id number]
== END ==
LOC: RAD 15:04
PROVIDERS: ATTEND Surgery
DX: M16.0 Bilateral primary osteoarthritis of hip (principal); M25.78 Osteophyte, vertebrae; M54.40 Lumbago with sciatica, unspecified side; I87.8 Other specified disorders of veins
CPT/HCPCS: 72100; 72220

== ENCOUNTER → 2020-07-07 | Outpatient (CLI) | payer MEDICAID ==
[2019-11-27 13:25] VITALS: BP 141/78
[~2020-07-07] MED LIST changes: +ACYC-12 PO; -ACYC400T PO; +HYDR-2761 PO
== END ==
LOC: LAB 12:17
PROVIDERS: ATTEND Internal Medicine Gastroenterology
DX: Z01.812 Encounter for preprocedural laboratory examination (principal); R13.10 Dysphagia, unspecified; Z20.822 Contact with and (suspected) exposure to COVID-19
CPT/HCPCS: U0003; U0005

== ENCOUNTER → 2020-07-08 | Day surgery (SDC) | payer MEDICAID ==
[~2020-07-08] MED LIST changes: +IV RINGERS,LACTATED 1000ML 1,000 ML IV SCH; +PROPOFOL 10 MG/ML (20ML) VIAL. IV ONE
[2020-07-08 12:57] VITALS: BP 130/70
== END | disposition home or self-care (01) ==
LOC: SURG 10:50
PROVIDERS: ATTEND Internal Medicine Gastroenterology
DX: R13.10 Dysphagia, unspecified (principal); K29.50 Unspecified chronic gastritis without bleeding; K31.89 Other diseases of stomach and duodenum; J44.9 Chronic obstructive pulmonary disease, unspecified; K21.9 Gastro-esophageal reflux disease without esophagitis; M19.90 Unspecified osteoarthritis, unspecified site; F41.9 Anxiety disorder, unspecified; F32.9 Major depressive disorder, single episode, unspecified; F17.210 Nicotine dependence, cigarettes, uncomplicated; Z87.440 Personal history of urinary (tract) infections; Z90.710 Acquired absence of both cervix and uterus; Z98.890 Other specified postprocedural states; Z79.82 Long term (current) use of aspirin; Z79.899 Other long term (current) drug therapy; Z72.89 Other problems related to lifestyle; Z88.5 Allergy status to narcotic agent
CPT/HCPCS: 43235; 43450; J2704

== ENCOUNTER → 2020-09-16 | Day surgery (SDC) | payer MEDICAID ==
[~2020-09-16] VITALS: Ht 165.1 cm; Wt 99.0 kg
[~2020-09-16] MED LIST changes: +LIDOCAINE 2% PF 5 ML VIAL. ONE
[2020-09-16 09:37] VITALS: BP 137/69
[2020-09-16 11:36] VITALS: BP 157/72
--- NOTE | 2020-09-21 13:15 | PATHOLOGY ---
[facility] Accession Number: [id number] . 01 Material submitted: . PART A: ileum - TERMINAL ILEUM BIOPSY. Modifiers: TERMINAL PART B: colon - ASCENDING COLON BIOPSY. Modifiers: ascending . 01 Clinical history: . GI BLEED COLONOSCOPY RECTAL BLEED . 02 Diagnosis: A. Small intestine mucosa, terminal ileum biopsy: - No significant pathologic abnormalities. . B. Colonic mucosa, ascending colon biopsies: - Multiple segments of tubular adenoma showing focal mild acute and chronic inflammation. (JPM:roberto; 09/21/2020) QTP 09/21/2020 1257 Local . 02 Comment: Sections of the terminal ileum biopsy reveal small intestine mucosa. There are no sprue-like changes or significant inflammatory changes. . Sections of the ascending colon biopsy reveal multiple segments of sessile tubular adenoma showing focal mild and acute chronic inflammation. There is no evidence of a chronic destructive colitis, lymphocytic colitis, or collagenous colitis. There is no high-grade dysplasia or evidence of malignancy. (JPM:pit; 09/21/2020) . 02 Electronically signed: . Sandip Olson MD, Pathologist NPI- [id number] . 01 Gross description: . A. Received in formalin labeled "Kalia, Malia, terminal ileum biopsy" are multiple ray-brown soft tissue fragments measuring in aggregate 0.9 x 0.4 x 0.3 cm. The specimen is submitted entirely in A1. . B. Received in formalin labeled "Hill, Malia ascending colon biopsy" are multiple ray-brown soft tissue fragments measuring in aggregate 1.7 x 0.6 x 0.3 cm. The specimen is submitted entirely in B1. ([facility]; 09/17/2020) GZA/GZA 09/17/2020 1547 Local . 02 Pathologist provided ICD-10: D12.2, K52.9 . 02 CPT . 461577, [id number] Specimen Comment: A courtesy copy of this report has been sent to [phone], [phone] Specimen Comment: [id number] Specimen Comment: Report sent to / DR ARZOLA Performed at: 01 [facility] [address], [place], [place] [id number] MD Hari Sifuentes MD Phone: [phone] Performed at: 02 [facility] [address] [place], [place] [id number] MD Sandip Olson MD Phone: [phone]
== END | disposition home or self-care (01) ==
LOC: ENDOS 09:01
PROVIDERS: ATTEND Internal Medicine Gastroenterology
DX: K62.5 Hemorrhage of anus and rectum (principal); D12.2 Benign neoplasm of ascending colon; K52.9 Noninfective gastroenteritis and colitis, unspecified; K64.8 Other hemorrhoids; J44.9 Chronic obstructive pulmonary disease, unspecified; K21.9 Gastro-esophageal reflux disease without esophagitis; M19.90 Unspecified osteoarthritis, unspecified site; F32.9 Major depressive disorder, single episode, unspecified; F41.9 Anxiety disorder, unspecified; Z86.010 Personal history of colon polyps; Z80.0 Family history of malignant neoplasm of digestive organs; Z88.5 Allergy status to narcotic agent; Z79.899 Other long term (current) drug therapy; Z83.3 Family history of diabetes mellitus; Z79.82 Long term (current) use of aspirin; Z90.710 Acquired absence of both cervix and uterus; Z87.440 Personal history of urinary (tract) infections; Z82.49 Family history of ischemic heart disease and other diseases of the circulatory system
CPT/HCPCS: 45380; 45381; 87426; C1713; J2704; 88305